=== PATIENT | female | born 1980 | race Hispanic/Latino ===

== ENCOUNTER 2016-11-23 00:07 | Emergency (ER) | payer MEDICAID, OTHER ==
--- NOTE | 2016-11-23 04:35 | Emergency Department Report ---
ED ENT HPI - General Chief complaint: Dental/Oral Stated complaint: FACIAL SWELLING Time Seen by Provider: 11/23/16 04:29 Source: patient Mode of arrival: Ambulatory Limitations: No Limitations - History of Present Illness Initial comments: 36 y/o female complain of toothache x 1 month that has worsen over the last 2 days MD complaint: tooth pain Onset/Timin -: month(s) Severity: moderate Severity scale (0 -10): 7 Quality: aching Consistency: intermittent Improves with: none Worsens with: eating - Related Data Home Medications Medication Instructions Recorded Confirmed Last Taken Perphenazine 8 mg PO HS 09/08/13 07/30/14 05/04/14 21:00 Sertraline [Zoloft] 200 mg PO QDAY 09/08/13 07/30/14 05/04/14 11:00 Previous Rx's Medication Instructions Recorded Last Taken Type Clindamycin [Cleocin] 300 mg PO Q8H #30 cap 07/30/14 Unknown Rx HYDROcodone/APAP 7.5-325 [[place] 1 each PO Q6HR PRN #14 tablet 07/30/14 Unknown Rx 7.5/325 mg] HYDROcodone/APAP 5-325 [[place] 1 each PO Q6HR PRN #10 tablet 11/23/16 Unknown Rx 5/325] Penicillin Vk [Veetids TAB] 250 mg PO QID #28 tablet 11/23/16 Unknown Rx Allergies Allergy/AdvReac Type Severity Reaction Status Date / Time No Known Allergies Allergy Verified 05/05/14 03:51 ED Dental HPI - General Chief complaint: Dental/Oral Stated complaint: FACIAL SWELLING Time Seen by Provider: 11/23/16 04:29 Source: patient Mode of arrival: Ambulatory Limitations: No Limitations - Related Data Home Medications Medication Instructions Recorded Confirmed Last Taken Perphenazine 8 mg PO HS 09/08/13 07/30/14 05/04/14 21:00 Sertraline [Zoloft] 200 mg PO QDAY 09/08/13 07/30/14 05/04/14 11:00 Previous Rx's Medication Instructions Recorded Last Taken Type Clindamycin [Cleocin] 300 mg PO Q8H #30 cap 07/30/14 Unknown Rx HYDROcodone/APAP 7.5-325 [[place] 1 each PO Q6HR PRN #14 tablet 07/30/14 Unknown Rx 7.5/325 mg] HYDROcodone/APAP 5-325 [[place] 1 each PO Q6HR PRN #10 tablet 11/23/16 Unknown Rx 5/325] Penicillin Vk [Veetids TAB] 250 mg PO QID #28 tablet 11/23/16 Unknown Rx Allergies Allergy/AdvReac Type Severity Reaction Status Date / Time No Known Allergies Allergy Verified 05/05/14 03:51 ED Review of Systems ROS: Stated complaint: FACIAL SWELLING Other details as noted in HPI Constitutional: denies: chills, fever Eyes: denies: eye pain, eye discharge, vision change ENT: dental pain. denies: ear pain, throat pain Respiratory: denies: cough, shortness of breath, wheezing Cardiovascular: denies: chest pain, palpitations Endocrine: no symptoms reported Gastrointestinal: denies: abdominal pain, nausea, diarrhea Genitourinary: denies: urgency, dysuria, discharge Musculoskeletal: denies: back pain, joint swelling, arthralgia Skin: denies: rash, lesions Neurological: denies: headache, weakness, paresthesias Psychiatric: denies: anxiety, depression Hematological/Lymphatic: denies: easy bleeding, easy bruising ED Past Medical Hx - Past Medical History Previous Medical History?: Yes Hx Psychiatric Treatment: Yes (depression) Additional medical history: ectopic 2011 sciatica - Surgical History Past Surgical History?: Yes Additional Surgical History: Removed right fallopian tube, tonsils - Social History Smoking Status: Never Smoker Substance Use Type: Alcohol - Medications Home Medications: Home Medications Medication Instructions Recorded Confirmed Last Taken Type Perphenazine 8 mg PO HS 09/08/13 07/30/14 05/04/14 21:00 History Sertraline [Zoloft] 200 mg PO QDAY 09/08/13 07/30/14 05/04/14 11:00 History Clindamycin [Cleocin] 300 mg PO Q8H #30 cap 07/30/14 Unknown Rx HYDROcodone/APAP 7.5-325 [[place] 1 each PO Q6HR PRN #14 tablet 07/30/14 Unknown Rx 7.5/325 mg] HYDROcodone/APAP 5-325 [[place] 1 each PO Q6HR PRN #10 tablet 11/23/16 Unknown Rx 5/325] Penicillin Vk [Veetids TAB] 250 mg PO QID #28 tablet 11/23/16 Unknown Rx ED Physical Exam - General Limitations: No Limitations General appearance: alert, in no apparent distress - Head Head exam: Present: atraumatic, normocephalic - Eye Eye exam: Present: normal appearance - ENT ENT exam: Present: mucous membranes moist - Expanded ENT Exam Expanded Teeth exam: Present: fractured tooth #, dental tenderness # (tooth #17 ) - Neck Neck exam: Present: normal inspection - Respiratory Respiratory exam: Present: normal lung sounds bilaterally. Absent: respiratory distress - Cardiovascular Cardiovascular Exam: Present: regular rate, normal rhythm. Absent: systolic murmur, diastolic murmur, rubs, gallop - GI/Abdominal GI/Abdominal exam: Present: soft, normal bowel sounds - Extremities Exam Extremities exam: Present: normal inspection - Back Exam Back exam: Present: normal inspection - Neurological Exam Neurological exam: Present: alert, oriented X3 - Psychiatric Psychiatric exam: Present: normal affect, normal mood - Skin Skin exam: Present: warm, dry, intact, normal color. Absent: rash ED Course Vital Signs 11/23/16 01:41 Temperature 97.8 F Pulse Rate 96 H Respiratory 18 Rate Blood Pressure 128/77 O2 Sat by Pulse 99 Oximetry ED Medical Decision Making - Medical Decision Making tooth abscess #17-tooth pt state she can not afford dental extraction at present Critical care attestation.: If time is entered above; I have spent that time in minutes in the direct care of this critically ill patient, excluding procedure time. ED Disposition Clinical Impression: Tooth abscess Disposition: DISCHARGED TO HOME OR SELFCARE Is pt being admited?: No Does the pt Need Aspirin: No Condition: Stable Instructions: Dental Abscess (ED) Prescriptions: HYDROcodone/APAP 5-325 [[place] 5/325] 1 each PO Q6HR PRN #10 tablet PRN Reason: Pain Penicillin Vk [Veetids TAB] 250 mg PO QID #28 tablet Referrals: PRIMARY CARE, [Primary Care Provider] - 3-5 Days [facility] [Outside] - 3-5 Days Forms: Work/School Release Form(ED) Time of Disposition: 04:39
[2016-11-23] MEDS ORDERED: NORCO 10/325 PO ONE (05:14)
[2016-11-23 06:05] VITALS: BP 122/79
== END 2016-11-23 06:03 | disposition home or self-care (01) ==
LOC: ED 00:07
DX: K04.7 Periapical abscess without sinus (principal)
CPT/HCPCS: 99282

== ENCOUNTER 2017-09-21 12:25 | Emergency (ER) | payer SELFPAY ==
[2017-09-21 12:47] VITALS: BP 139/79
--- NOTE | 2017-09-21 14:19 | Emergency Department Report ---
ED General Adult HPI - General Chief complaint: Psych Stated complaint: NAUSEA Time Seen by Provider: 09/21/17 13:33 Source: EMS Mode of arrival: Stretcher Limitations: No Limitations - History of Present Illness Initial comments: Patient is a 37-year-old female past medical history of irritable bowel syndrome who presents with allegedly altered mental status. Patient was stating that she was nauseous and having abdominal pain. She states because that she was told that she was confused by EMS. Patient is currently alert and oriented and patient has no suicidal or homicidal ideation. She states that she smoked some weed earlier and she was confused and sit up all was the president counseled that EMS told her she hadto go to the emergency department. She is refusing blood work and diagnostic tests as she states that she doesn' t want to go forearm. Patient states that she is not confused now and that she would like to leave. Patient is alert and oriented 4 and engages and clear cold directed behavior will try to talk to patient's to confirm story Severity scale (0 -10): 0 - Related Data Home Medications Medication Instructions Recorded Confirmed Last Taken Perphenazine 8 mg PO HS 09/08/13 07/30/14 05/04/14 21:00 Sertraline [Zoloft] 200 mg PO QDAY 09/08/13 07/30/14 05/04/14 11:00 Previous Rx's Medication Instructions Recorded Last Taken Type Clindamycin [Cleocin] 300 mg PO Q8H #30 cap 07/30/14 Unknown Rx HYDROcodone/APAP 7.5-325 [[place] 1 each PO Q6HR PRN #14 tablet 07/30/14 Unknown Rx 7.5/325 mg] HYDROcodone/APAP 5-325 [[place] 1 each PO Q6HR PRN #10 tablet 11/23/16 Unknown Rx 5/325] Penicillin Vk [Veetids TAB] 250 mg PO QID #28 tablet 11/23/16 Unknown Rx Allergies Allergy/AdvReac Type Severity Reaction Status Date / Time No Known Allergies Allergy Verified 05/05/14 03:51 ED Review of Systems ROS: Stated complaint: NAUSEA Other details as noted in HPI Constitutional: denies: chills, fever Eyes: denies: eye pain, eye discharge, vision change ENT: denies: ear pain, throat pain Respiratory: denies: cough, shortness of breath, wheezing Cardiovascular: denies: chest pain, palpitations Endocrine: no symptoms reported Gastrointestinal: nausea, vomiting. denies: abdominal pain, diarrhea Genitourinary: denies: urgency, dysuria, discharge Musculoskeletal: denies: back pain, joint swelling, arthralgia Skin: other (knee abrasion). denies: rash, lesions Neurological: denies: headache, weakness, paresthesias Psychiatric: denies: anxiety, depression Hematological/Lymphatic: denies: easy bleeding, easy bruising ED Past Medical Hx - Past Medical History Hx Psychiatric Treatment: Yes (depression) Additional medical history: ectopic 2010 sciatica - Surgical History Additional Surgical History: Removed right fallopian tube, tonsils - Social History Smoking Status: Unknown if ever smoked - Medications Home Medications: Home Medications Medication Instructions Recorded Confirmed Last Taken Type Perphenazine 8 mg PO HS 09/08/13 07/30/14 05/04/14 21:00 History Sertraline [Zoloft] 200 mg PO QDAY 09/08/13 07/30/14 05/04/14 11:00 History Clindamycin [Cleocin] 300 mg PO Q8H #30 cap 07/30/14 Unknown Rx HYDROcodone/APAP 7.5-325 [[place] 1 each PO Q6HR PRN #14 tablet 07/30/14 Unknown Rx 7.5/325 mg] HYDROcodone/APAP 5-325 [[place] 1 each PO Q6HR PRN #10 tablet 11/23/16 Unknown Rx 5/325] Penicillin Vk [Veetids TAB] 250 mg PO QID #28 tablet 11/23/16 Unknown Rx ED Physical Exam - General Limitations: No Limitations General appearance: alert, in no apparent distress - Head Head exam: Present: atraumatic, normocephalic - Eye Eye exam: Present: normal appearance - ENT ENT exam: Present: mucous membranes moist - Neck Neck exam: Present: normal inspection - Respiratory Respiratory exam: Present: normal lung sounds bilaterally. Absent: respiratory distress - Cardiovascular Cardiovascular Exam: Present: regular rate, normal rhythm. Absent: systolic murmur, diastolic murmur, rubs, gallop - GI/Abdominal GI/Abdominal exam: Present: soft, normal bowel sounds - Extremities Exam Extremities exam: Present: other (bilateral knee abrasion) - Back Exam Back exam: Present: normal inspection - Neurological Exam Neurological exam: Present: alert, oriented X3 - Psychiatric Psychiatric exam: Present: normal affect, normal mood - Skin Skin exam: Present: warm, dry, intact, normal color. Absent: rash ED Course Vital Signs 09/21/17 09/21/17 12:45 12:48 Temperature 97.7 F Pulse Rate 58 L Respiratory 12 12 Rate Blood Pressure 139/79 [Left] O2 Sat by Pulse 99 99 Oximetry ED Medical Decision Making - Medical Decision Making Chief medical diagnosis: Confusion secondary to drug effect Differential multiple diagnosis: Hypoglycemia, electrolyte abnormality CBC, CMP, urinalysis, urine drug screen Patient is refusing blood work and blood tests patient is oriented and alert 3 patient has clear goal-directed behavior and has no suicidal or homicidal ideation. Discussed with patient's patient does not have a history of suicidal ideation and she says she was confused due to drugs. Given that patient has a clear history I will send patient home and patient does not need to be evaluated by mental health worker as patient has no reason to be admitted to psychiatry facility. Discussed outpatient patient agrees with plan engaged and shared decision making. Critical care attestation.: If time is entered above; I have spent that time in minutes in the direct care of this critically ill patient, excluding procedure time. ED Disposition Clinical Impression: Confusion Knee abrasion Qualifiers: Encounter type: initial encounter Laterality: unspecified laterality Qualified Code(s): S80.219A - Abrasion, unspecified knee, initial encounter Disposition: DC-01 TO HOME OR SELFCARE Is pt being admited?: No Does the pt Need Aspirin: No Condition: Stable Instructions: Altered Mental Status (ED) Referrals: TUNG YOST MD [Staff Physician] - 3-5 Days
== END 2017-09-21 16:32 | disposition home or self-care (01) ==
LOC: ED 12:25
DX: S80.212A Abrasion, left knee, initial encounter (principal); S80.211A Abrasion, right knee, initial encounter; F32.9 Major depressive disorder, single episode, unspecified; X58.XXXA Exposure to other specified factors, initial encounter; Y93.89 Activity, other specified; Y92.89 Other specified places as the place of occurrence of the external cause; Y99.8 Other external cause status
CPT/HCPCS: 99283

== ENCOUNTER 2018-12-02 22:41 | Emergency (ER) | payer SELFPAY ==
[2018-12-02] MEDS ORDERED: TYLENOL ONE (23:01)
[2018-12-02 23:08] VITALS: BP 133/85
[2018-12-02] MEDS ORDERED: TYLENOL PO ONE (23:08)
[2018-12-03] MEDS ORDERED: TRIPLE ANTIBIOTIC TP STA (00:20)
--- NOTE | 2018-12-03 01:02 | XRay Report ---
FINAL REPORT PROCEDURE: XR HAND 3+V LT TECHNIQUE: LEFT hand radiographs, AP, lateral, and oblique views. CPT 81947-TI HISTORY: injury during arrest COMPARISON: No prior studies are available for comparison. FINDINGS: Fracture (s) and/or Dislocation(s): There is a comminuted fracture of the 2nd metacarpal bone.. Alignment: Normal . Joint space(s): Normal . Soft tissues: There is generalized soft tissue swelling.. Bone mineralization: Normal . Foreign bodies: None . IMPRESSION: Fracture of the distal 2nd metacarpal bone..
--- NOTE | 2018-12-03 01:14 | Emergency Department Report ---
ED General Adult HPI - General Chief complaint: Extremity Injury, Upper Stated complaint: BUMP ON HEAD, INJURY TO FINGER Time Seen by Provider: 12/03/18 00:18 Source: patient Mode of arrival: Ambulatory Limitations: No Limitations - History of Present Illness Initial comments: 38-year-old female resents emergency department with police in custody complaining of pain to her left hand and right shoulder region. States that she was also his hip. There are some portion of the wrist, but denies any loss of consciousness, presyncope, nausea, vomiting, visual disturbances or neck pain. She reports tingling to her hands and the left has pain with range of motion. Her right hand. States she feels some pins and needles to the hand as pain a ppears to be radiating from her shoulder. No abdominal pain or chest pain. She is ambulatory without limitations despite abrasions to her knees bilaterally. The pre-existing injury to her right shoulder that was sustained at 2013 and has a lot of complaints regarding being handcuffed behind her back. Location: head, left, right, upper extremity, lower extremity Radiation: non-radiation Severity scale (0 -10): 0 Quality: dull Consistency: constant Improves with: none Worsens with: none Associated Symptoms: denies: confusion, chest pain, cough, diaphoresis, loss of appetite, malaise, nausea/vomiting, shortness of breath, syncope, weakness Treatments Prior to Arrival: none - Related Data Home Medications Medication Instructions Recorded Confirmed Last Taken Perphenazine 8 mg PO HS 09/08/13 07/30/14 05/04/14 21:00 Sertraline [Zoloft] 200 mg PO QDAY 09/08/13 07/30/14 05/04/14 11:00 Previous Rx's Medication Instructions Recorded Last Taken Type Clindamycin [Cleocin] 300 mg PO Q8H #30 cap 07/30/14 Unknown Rx HYDROcodone/APAP 7.5-325 [[place] 1 each PO Q6HR PRN #14 tablet 07/30/14 Unknown Rx 7.5/325 mg] HYDROcodone/APAP 5-325 [[place] 1 each PO Q6HR PRN #10 tablet 11/23/16 Unknown Rx 5/325] Penicillin Vk [Veetids TAB] 250 mg PO QID #28 tablet 11/23/16 Unknown Rx Ketorolac [Toradol] 10 mg PO Q6H PRN #20 tablet 12/03/18 Unknown Rx Allergies Allergy/AdvReac Type Severity Reaction Status Date / Time No Known Allergies Allergy Verified 05/05/14 03:51 ED Review of Systems ROS: Stated complaint: BUMP ON HEAD, INJURY TO FINGER Other details as noted in HPI Constitutional: denies: chills, fever Eyes: denies: eye pain, eye discharge, vision change ENT: denies: ear pain, throat pain Respiratory: denies: cough, shortness of breath, wheezing Cardiovascular: denies: chest pain, palpitations Endocrine: no symptoms reported Gastrointestinal: denies: abdominal pain, nausea, diarrhea Genitourinary: denies: urgency, dysuria, discharge Musculoskeletal: joint swelling. denies: back pain, arthralgia Skin: denies: rash, lesions Neurological: denies: headache, weakness, paresthesias Psychiatric: denies: anxiety, depression Hematological/Lymphatic: denies: easy bleeding, easy bruising ED Past Medical Hx - Past Medical History Previous Medical History?: Yes Hx Psychiatric Treatment: Yes (depression) Additional medical history: ectopic 2010 sciatica - Surgical History Past Surgical History?: Yes Additional Surgical History: Removed right fallopian tube, tonsils. R wrist fx. hardware in R shoulder, ?2013/2014 - Social History Smoking Status: Current Every Day Smoker Substance Use Type: Alcohol - Medications Home Medications: Home Medications Medication Instructions Recorded Confirmed Last Taken Type Perphenazine 8 mg PO HS 09/08/13 07/30/14 05/04/14 21:00 History Sertraline [Zoloft] 200 mg PO QDAY 09/08/13 07/30/14 05/04/14 11:00 History Clindamycin [Cleocin] 300 mg PO Q8H #30 cap 07/30/14 Unknown Rx HYDROcodone/APAP 7.5-325 [[place] 1 each PO Q6HR PRN #14 tablet 07/30/14 Unknown Rx 7.5/325 mg] HYDROcodone/APAP 5-325 [[place] 1 each PO Q6HR PRN #10 tablet 11/23/16 Unknown Rx 5/325] Penicillin Vk [Veetids TAB] 250 mg PO QID #28 tablet 11/23/16 Unknown Rx Ketorolac [Toradol] 10 mg PO Q6H PRN #20 tablet 12/03/18 Unknown Rx ED Physical Exam - General Limitations: No Limitations General appearance: alert, in no apparent distress - Head Head exam: Present: atraumatic, normocephalic, other (abrasion to the left frontal region with a small hematoma) - Eye Eye exam: Present: normal appearance, PERRL, EOMI. Absent: scleral icterus, conjunctival injection, periorbital swelling, periorbital tenderness Pupils: Present: normal accommodation - ENT ENT exam: Present: normal exam, normal orophraynx, mucous membranes moist. Absent: TM's normal bilaterally - Neck Neck exam: Present: normal inspection, full ROM. Absent: tenderness, meningismus, lymphadenopathy - Respiratory Respiratory exam: Present: normal lung sounds bilaterally, chest wall tenderness. Absent: respiratory distress, wheezes, rales, rhonchi, accessory muscle use, decreased breath sounds - Cardiovascular Cardiovascular Exam: Present: regular rate, normal rhythm. Absent: bradycardia, tachycardia, irregular rhythm, systolic murmur, diastolic murmur, rubs, gallop - GI/Abdominal GI/Abdominal exam: Present: soft, normal bowel sounds. Absent: tenderness, gua rding, hypoactive bowel sounds, organomegaly, mass, bruit, pulsatile mass - Extremities Exam Extremities exam: Present: normal inspection, full ROM, tenderness, normal capillary refill, other (right shoulder is negative sulcus sign. There is no pain with Ramesh test. There is some discomfort with palpation of the lower aspect of the deltoid. There is no swelling or bruising. Full range of motion is is is appreciated. No axillary tenderness.). Absent: pedal edema, joint swelling - Expanded Upper Extremity Exam Left Shoulder Exam: Present: normal inspection Upper Arm exam: Present: normal inspection Hand Wrist exam: Present: tenderness, swelling (at the level of the second and third metacarpal region. Snuff box tenderness is appreciated as well. Pulses are 2+. Capillary refills are brisk. Overlock Waistline Joiner strength is 2/5) - Back Exam Back exam: Present: normal inspection, full ROM - Neurological Exam Neurological exam: Present: alert, oriented X3, CN II-XII intact, normal gait - Psychiatric Psychiatric exam: Present: normal affect, normal mood, depressed - Skin Skin exam: Present: warm, dry, normal color, abrasion (fingers bilaterally. Frontal region of the head), ecchymosis, other. Absent: intact, rash ED Course Vital Signs 12/02/18 12/02/18 23:03 23:09 Temperature 98 F Pulse Rate 91 H Respiratory 14 18 Rate Blood Pressure 133/85 O2 Sat by Pulse 100 Oximetry - Procedure Description Procedures done: Left hand Was placed in a volar splint, OCL. Neurovascularly intact. No complications Critical care attestation.: If time is entered above; I have spent that time in minutes in the direct care of this critically ill patient, excluding procedure time. ED Disposition Clinical Impression: Metacarpal bone fracture Disposition: DC-01 TO HOME OR SELFCARE Is pt being admited?: No Does the pt Need Aspirin: No Condition: Stable Instructions: Hand Fracture (ED) Prescriptions: Ketorolac [Toradol] 10 mg PO Q6H PRN #20 tablet PRN Reason: Pain Referrals: PRIMARY CARE, [Primary Care Provider] - 3-5 Days JAMES MOISE MD [Staff Physician] - 3-5 Days
[2018-12-03] MEDS ORDERED: IBUPROFEN PO ONE ×2 (01:27→01:28)
[2018-12-03] MEDS ORDERED: NORCO 5/325 ONE (01:28)
[2018-12-03] MEDS ORDERED: NORCO 5/325 PO ONE (01:28)
== END 2018-12-03 02:00 | disposition home or self-care (01) ==
LOC: ED 22:41
DX: S62.391A Other fracture of second metacarpal bone, left hand, initial encounter for closed fracture (principal); F32.9 Major depressive disorder, single episode, unspecified; F17.200 Nicotine dependence, unspecified, uncomplicated; X58.XXXA Exposure to other specified factors, initial encounter; Y93.89 Activity, other specified; Y92.89 Other specified places as the place of occurrence of the external cause; Y99.8 Other external cause status
CPT/HCPCS: A6250

== ENCOUNTER 2022-01-12 00:49 | Emergency (ER) | payer MEDICAID ==
[2022-01-12] MEDS ORDERED: SODIUM CHLORIDE 0.9% 1000 ML 1,000 ML IV ONE (01:19)
[2022-01-12] MEDS ORDERED: NALOXONE 2 MG/2 ML INJ IV ONE (01:20)
[2022-01-12] MEDS ORDERED: NALOXONE 2 MG/2 ML INJ ONE (01:20)
[2022-01-12 01:49] LABS: Basophils # (Auto) 0.1 K/mm3 (0.0-0.1); Basophils % (Auto) 0.7 % (0.0-1.8); Eosinophils # (Auto) 0.1 K/mm3 (0.0-0.4); Eosinophils % (Auto) 1.4 % (0.0-4.3); Hematocrit 43.5 % (30.3-42.9); Hemoglobin 14.1 gm/dl (10.1-14.3); Lymphocytes # (Auto) 2.7 K/mm3 (1.2-5.4); Lymphocytes % (Auto) 32.4 % (13.4-35.0); Mean Corpuscular HGB Conc 32 % (30-34); Mean Corpuscular Volume 91 fl (79-97); Monocytes # (Auto) 0.3 K/mm3 (0.0-0.8); Monocytes % (Auto) 3.5 % (0.0-7.3); Platelet Count 269 K/mm3 (140-440); Red Blood Count 4.76 M/mm3 (3.65-5.03); Red Cell Distribution Width 13.4 % (13.2-15.2)
--- NOTE | 2022-01-12 03:10 | XRay Report ---
CHEST 1 VIEW 01/12/2022 1:22 AM INDICATION / CLINICAL INFORMATION: Medical Clearance Psych. COMPARISON: None available. FINDINGS: SUPPORT DEVICES: None. HEART / MEDIASTINUM: No significant abnormality. LUNGS / PLEURA: No significant pulmonary or pleural abnormality. No pneumothorax. ADDITIONAL FINDINGS: No significant additional findings. IMPRESSION: No significant abnormality. Signer Name: Junior Mcnair MD Signed: 01/12/2022 3:06 AM Workstation Name: [id number]
[2022-01-12 03:13] LABS: Alanine Aminotransferase 12 units/L (7-56); Albumin 4.1 g/dL (3.9-5); Blood Urea Nitrogen 11 mg/dL (7-17); Calcium 9.1 mg/dL (8.4-10.2); Hemolysis Index 6
[2022-01-12 03:17] LABS: BUN/Creatinine Ratio 16
--- NOTE | 2022-01-12 04:34 | Cat Scan Report ---
CT facial bones wo con INDICATION: injury. TECHNIQUE: All CT scans at this location are performed using the following dose modulation technique: Automated exposure control. CONTRAST: None. COMPARISON: None available. FINDINGS: Soft tissue swelling is noted centrally at the frontal region. No bony injury or sinus air-fluid level. A small mucous retention cyst is seen at the inferior aspect of the left maxillary sinus. No suspicious soft tissue abnormality. IMPRESSION: 1. No bony injury. 2. Soft tissue swelling frontal region centrally. Signer Name: Junior Mcnair MD Signed: 01/12/2022 4:30 AM Workstation Name: [id number]
[2022-01-12 04:37] LABS: Benzodiazepines Screen,Urine Negative; Cocaine Screen,Urine Negative; Methadone Screen,Urine Negative; Opiate Screen,Urine Negative
--- NOTE | 2022-01-12 04:40 | Cat Scan Report ---
CT head without contrast INDICATION : Medical Clearance Psych. Headache. TECHNIQUE: Axial imaging performed from the skull apex through the skull base without the use of con trast. All CT scans at this location are performed using CT dose reduction for ALARA by means of aut omated exposure control. COMPARISON: None FINDINGS: Parenchyma: No mass, stroke or hemorrhage. Ventricles: Ventricles are normal in size and appear symmetric. Soft tissues: Soft tissue hematoma frontal region centrally. Bones: No acute osseous abnormality. Sinuses: Sinuses and mastoid air cells are clear. IMPRESSION: 1. No intracranial injury. 2. Soft tissue hematoma frontal region centrally. Signer Name: Junior Mcnair MD Signed: 01/12/2022 4:36 AM Workstation Name: [id number]
[2022-01-12 04:51] LABS: Bacteria,Urine 1+ /HPF (Negative); Bilirubin,Urine NEG (Negative); Blood,Urine SM (Negative); Color,Urine Yellow (Yellow); Mucus,Urine FEW /HPF; Protein,Urine <15 mg/dL mg/dL (Negative)
[2022-01-12 04:59] LABS: Amphetamine Screen,Urine PRESUMPTIVE POSITIVE; Cannabinoid Screen,Urine PRESUMPTIVE POSITIVE
--- NOTE | 2022-01-12 05:39 | Emergency Department Report ---
History of Present Illness - General Chief Complaint: Overdose Stated Complaint: AMS Time Seen by Provider: 01/12/22 01:19 Source: EMS Mode of arrival: Stretcher Limitations: Altered Mental Status - History of Present Illness Initial Comments: Pt came in via EMS due to a pt hitting her head on the counter at a quick trip on [employer]. Pt recieved 2mg of narcan in route per EMS. -: Gradual, days(s) Intent: unwilling to say Context: Accidental Overdose: wanted to get high Treatments Prior to Arrival: none - Related Data Home Medications Medication Instructions Recorded Confirmed Last Taken Perphenazine 8 mg PO HS 09/08/13 07/30/14 05/04/14 21:00 Sertraline [Zoloft] 200 mg PO QDAY 09/08/13 07/30/14 05/04/14 11:00 Previous Rx's Medication Instructions Recorded Last Taken Type Clindamycin [Cleocin] 300 mg PO Q8H #30 cap 07/30/14 Unknown Rx HYDROcodone/APAP 7.5-325 [[place] 1 each PO Q6HR PRN #14 tablet 07/30/14 Unknown Rx 7.5/325 mg] HYDROcodone/APAP 5-325 [[place] 1 each PO Q6HR PRN #10 tablet 11/23/16 Unknown Rx 5/325] Penicillin Vk [Veetids TAB] 250 mg PO QID #28 tablet 11/23/16 Unknown Rx Ketorolac [Toradol] 10 mg PO Q6H PRN #20 tablet 12/03/18 Unknown Rx Allergies Allergy/AdvReac Type Severity Reaction Status Date / Time No Known Allergies Allergy Verified 05/05/14 03:51 ED Review of Systems ROS: Stated complaint: AMS Other details as noted in HPI Constitutional: denies: chills, fever Eyes: denies: eye pain, eye discharge, vision change ENT: denies: ear pain, throat pain Respiratory: denies: cough, shortness of breath, wheezing Cardiovascular: denies: chest pain, palpitations Endocrine: no symptoms reported Gastrointestinal: denies: abdominal pain, nausea, diarrhea Genitourinary: denies: urgency, dysuria, discharge Musculoskeletal: denies: back pain, joint swelling, arthralgia Skin: denies: rash, lesions Neurological: denies: headache, weakness, paresthesias Psychiatric: denies: anxiety, depression Hematological/Lymphatic: denies: easy bleeding, easy bruising ED Past Medical Hx - Past Medical History Previous Medical History?: No Hx Hypertension: No Hx Psychiatric Treatment: Yes (depression) Additional medical history: ectopic 2010 sciatica - Surgical History Additional Surgical History: Removed right fallopian tube, tonsils. R wrist fx. hardware in R shoulder, ?2013/2014 - Social History Smoking Status: Current Every Day Smoker Substance Use Type: Alcohol - Medications Home Medications: Home Medications Medication Instructions Recorded Confirmed Last Taken Type Perphenazine 8 mg PO HS 09/08/13 07/30/14 05/04/14 21:00 History Sertraline [Zoloft] 200 mg PO QDAY 09/08/13 07/30/14 05/04/14 11:00 History Clindamycin [Cleocin] 300 mg PO Q8H #30 cap 07/30/14 Unknown Rx HYDROcodone/APAP 7.5-325 [[place] 1 each PO Q6HR PRN #14 tablet 07/30/14 Unknown Rx 7.5/325 mg] HYDROcodone/APAP 5-325 [[place] 1 each PO Q6HR PRN #10 tablet 11/23/16 Unknown Rx 5/325] Penicillin Vk [Veetids TAB] 250 mg PO QID #28 tablet 11/23/16 Unknown Rx Ketorolac [Toradol] 10 mg PO Q6H PRN #20 tablet 12/03/18 Unknown Rx ED Physical Exam - General Limitations: Altered Mental Status General appearance: appears intoxicated, obese - Expanded Head Exam Expanded Head exam: Present: contusion - Eye Eye exam: Present: normal appearance - ENT ENT exam: Present: mucous membranes moist - Neck Neck exam: Present: normal inspection - Respiratory Respiratory exam: Present: normal lung sounds bilaterally. Absent: respiratory distress - Cardiovascular Cardiovascular Exam: Present: regular rate, normal rhythm. Absent: systolic murmur, diastolic murmur, rubs, gallop - GI/Abdominal GI/Abdominal exam: Present: soft, normal bowel sounds - Extremities Exam Extremities exam: Present: normal inspection - Back Exam Back exam: Present: normal inspection - Neurological Exam Neurological exam: Present: alert, oriented X3 - Psychiatric Psychiatric exam: Present: normal affect, normal mood - Skin Skin exam: Present: warm, dry, intact, normal color. Absent: rash ED Course Vital Signs 01/12/22 01:31 Pulse Rate 53 L Respiratory 16 Rate Blood Pressure 123/71 [Right] O2 Sat by Pulse 98 Oximetry ED Medical Decision Making - Lab Data Result diagrams: 01/12/22 01:28 01/12/22 01:28 - Radiology Data Radiology results: image reviewed - Medical Decision Making head ct negative , work up negative drug abuse noted , will dishcarge home aake and alert and back to banner Critical care attestation.: If time is entered above; I have spent that time in minutes in the direct care of this critically ill patient, excluding procedure time. ED Disposition Clinical Impression: Facial contusion, Substance abuse, Nasal contusion, Altered mental status Disposition: 01 HOME / SELF CARE / HOMELESS Is pt being admited?: No Does the pt Need Aspirin: No Condition: Stable Instructions: Substance Use Disorder and Mental Illness, How to Use Cold Therapy, Substance Use Disorder
[2022-01-12 06:03] VITALS: BP 138/56
== END 2022-01-12 05:58 | disposition home or self-care (01) ==
LOC: ED 00:49
DX: S00.83XA Contusion of other part of head, initial encounter (principal); S00.33XA Contusion of nose, initial encounter; R41.82 Altered mental status, unspecified; F17.200 Nicotine dependence, unspecified, uncomplicated; F10.20 Alcohol dependence, uncomplicated; X58.XXXA Exposure to other specified factors, initial encounter; Y93.89 Activity, other specified; Y92.89 Other specified places as the place of occurrence of the external cause; Y99.8 Other external cause status; F19.10 Other psychoactive substance abuse, uncomplicated
CPT/HCPCS: 36415; 70450; 70486; 71045; 80053; 80307; 81001; 84703; 85025; 96361; 96374; 99285; J2310; J7030; 80320; Q0162; G0480

== ENCOUNTER 2022-03-24 04:51 | Inpatient (IN) | payer MEDICAID ==
[2022-03-24] MEDS ORDERED: SODIUM CHLORIDE 0.9% 1000 ML 1,000 ML ONE (05:08)
[2022-03-24] MEDS ORDERED: MINERAL OIL/PETROLATUM, WHITE OPHTH OINT 3.5 GM OU PRN (05:08)
[2022-03-24] MEDS ORDERED: LIP THERAPY VASELINE TP PRN (05:08)
[2022-03-24] MEDS ORDERED: SODIUM CHLORIDE 0.9% 1000 ML 1,000 ML IV ONE (05:11)
--- NOTE | 2022-03-24 05:12 | Emergency Department Report ---
<SOPHY BOND K - Last Filed: 03/24/22 07:16> ED Altered Mental Status HPI - General Stated Complaint: DRUG OVERDOSE Time Seen by Provider: 03/24/22 05:08 - Related Data Home Medications Medication Instructions Recorded Confirmed Last Taken Perphenazine 8 mg PO HS 09/08/13 07/30/14 05/04/14 21:00 Sertraline [Zoloft] 200 mg PO QDAY 09/08/13 07/30/14 05/04/14 11:00 Previous Rx's Medication Instructions Recorded Last Taken Type Clindamycin [Cleocin] 300 mg PO Q8H #30 cap 07/30/14 Unknown Rx HYDROcodone/APAP 7.5-325 [[place] 1 each PO Q6HR PRN #14 tablet 07/30/14 Unknown Rx 7.5/325 mg] HYDROcodone/APAP 5-325 [[place] 1 each PO Q6HR PRN #10 tablet 11/23/16 Unknown Rx 5/325] Penicillin Vk [Veetids TAB] 250 mg PO QID #28 tablet 11/23/16 Unknown Rx Ketorolac [Toradol] 10 mg PO Q6H PRN #20 tablet 12/03/18 Unknown Rx Allergies Allergy/AdvReac Type Severity Reaction Status Date / Time No Known Allergies Allergy Verified 05/05/14 03:51 ED Past Medical Hx - Medications Home Medications: Home Medications Medication Instructions Recorded Confirmed Last Taken Type Perphenazine 8 mg PO HS 09/08/13 07/30/14 05/04/14 21:00 History Sertraline [Zoloft] 200 mg PO QDAY 09/08/13 07/30/14 05/04/14 11:00 History Clindamycin [Cleocin] 300 mg PO Q8H #30 cap 07/30/14 Unknown Rx HYDROcodone/APAP 7.5-325 [[place] 1 each PO Q6HR PRN #14 tablet 07/30/14 Unknown Rx 7.5/325 mg] HYDROcodone/APAP 5-325 [[place] 1 each PO Q6HR PRN #10 tablet 11/23/16 Unknown Rx 5/325] Penicillin Vk [Veetids TAB] 250 mg PO QID #28 tablet 11/23/16 Unknown Rx Ketorolac [Toradol] 10 mg PO Q6H PRN #20 tablet 12/03/18 Unknown Rx - Lab Data Result diagrams: 03/24/22 05:35 03/24/22 05:35 ED Disposition Clinical Impression: Obtundation, Drug overdose, Endotracheally intubated Disposition: ADMITTED INPATIENT Is pt being admited?: Yes Does the pt Need Aspirin: No Condition: Fair Time of Disposition: 07:17 (Care transferred over to hospitalist Dr. Rowan (discussed with Dr. Pappas)) <POLAHALEYAMANDA C - Last Filed: 03/26/22 14:02> ED Altered Mental Status HPI - General Source: patient, EMS, old records reviewed Mode of arrival: Stretcher Limitations: Altered Mental Status, Physical Limitation - History of Present Illness Initial Comments: 41-year-old female with a past medical history of substance abuse with drug overdose presents to the hospital with suspected drug overdose and altered mental status. Patient was picked up by EMS at a male friend's house. He reports that she drank a substance and then passed out and became unresponsive. Patient was reported breathing at a rate of 4 with decreased responsiveness. She received 2 g of Narcan without response with an Accu-Chek of 110. Upon arrival she is satting 99% on room air, with pinpoint pupils, unresponsive to sternal rub, and bradycardia. Decision made to intubate for airway protection due to decreased responsiveness. Patient arrived without IV access. as per medical record review patient was here in December for drug overdose responsive to Narcan and evaluated for face and head injury. ED Review of Systems ROS: Stated complaint: DRUG OVERDOSE Other details as noted in HPI Comment: Unobtainable due to pts medical conditions ED Past Medical Hx - Past Medical History Hx Hypertension: No Hx Psychiatric Treatment: Yes (depression) Additional medical history: ectopic 2010 sciatica - Surgical History Additional Surgical History: Removed right fallopian tube, tonsils. R wrist fx. hardware in R shoulder, ?2013/2014 - Social History Smoking Status: Current Every Day Smoker Substance Use Type: Alcohol ED Physical Exam - Other Other exam information: General: Unresponsive Head: Atraumatic Eyes: Pinpoint pupils ENT: Moist mucous membranes Neck: Normal appearance, no midline tenderness Chest: Clear to auscultation bilaterally CV: Bradycardic regular rhythm Abdomen: Soft, normal bowel sounds, nontender, nondistended, no rebound or guarding Back: Normal inspection Extremity: Normal inspection, full range of motion Neuro: gcs E1,V1,M4=6. Patient had minimal movement of her left foot with sternal rub but otherwise did not respond to pain. Psych: Appropriate behavior Skin: No rash ED Course Vital Signs 03/24/22 03/24/22 03/24/22 05:12 05:15 05:29 Temperature 97.8 F Pulse Rate 44 L 50 L 50 L Respiratory 18 16 Rate Blood Pressure 101/68 116/80 O2 Sat by Pulse 100 100 100 Oximetry 03/24/22 03/24/22 03/24/22 05:30 05:40 06:00 Temperature Pulse Rate 38 L 48 L Respiratory 16 16 Rate Blood Pressure 100/67 117/58 O2 Sat by Pulse 100 100 100 Oximetry 03/24/22 03/24/22 03/24/22 06:16 06:30 06:46 Temperature Pulse Rate 47 L 50 L 83 Respiratory 16 16 15 Rate Blood Pressure 123/75 130/78 130/78 O2 Sat by Pulse 100 100 100 Oximetry 03/24/22 03/24/22 03/24/22 07:00 07:13 07:15 Temperature Pulse Rate 85 57 L 71 Respiratory 17 16 Rate Blood Pressure 129/83 125/75 125/75 O2 Sat by Pulse 100 100 100 Oximetry 03/24/22 03/24/22 03/24/22 07:30 07:45 08:00 Temperature Pulse Rate 58 L 75 84 Respiratory 16 15 15 Rate Blood Pressure 127/74 122/82 111/83 O2 Sat by Pulse 100 100 100 Oximetry 03/24/22 03/24/22 03/24/22 08:15 08:30 08:45 Temperature Pulse Rate 78 84 Respiratory 29 H 21 Rate Blood Pressure 116/61 124/65 119/59 O2 Sat by Pulse 100 100 100 Oximetry - Reevaluation(s) Reevaluation #1: 03/24/22 05:21 Heart rate sinus bradycardia rate 39 on EKG with a pressure of 107/69 03/24/22 05:47 I was informed that the patient was actively moving all over the table for CAT scan. IV ketamine ordered in order to obtain imaging study - Intubation Time Out Performed: Yes Sedative: Etomidate Mg Given: 20 Paralytic: Succinylcholine Mg Given: 10 Laryngoscope: Britney Size: 4 ET Tube Size: 7.5 Tube Secured Depth (cm): 22 Tube Secured Location: lips Tube Placement Confirmation: visualized tube passing t, equal breath sounds bilat, no breath sounds over epi, confirmation by capnometr Patient Tolerated Procedure: well, no complications Intubation Complications: none Additional Comments: Swelling to the arytenoid cartilage noticed during intubation - Lab Data Result diagrams: 03/25/22 10:01 03/25/22 10:01 Lab Results 03/24/22 03/24/22 03/24/22 Range/Units 05:22 05:35 05:35 WBC 11.2 H (4.5-11.0) K/mm3 RBC 4.72 (3.65-5.03) M/mm3 Hgb 14.0 (10.1-14.3) gm/dl Hct 43.7 H (30.3-42.9) % MCV 93 (79-97) fl MCH 30 (28-32) pg MCHC 32 (30-34) % RDW 15.2 (13.2-15.2) % Plt Count 266 (140-440) K/mm3 Lymph % (Auto) 19.6 (13.4-35.0) % [place] % (Auto) 5.3 (0.0-7.3) % Eos % (Auto) 0.8 (0.0-4.3) % Baso % (Auto) 0.7 (0.0-1.8) % Lymph # (Auto) 2.2 (1.2-5.4) K/mm3 [place] # (Auto) 0.6 (0.0-0.8) K/mm3 Eos # (Auto) 0.1 (0.0-0.4) K/mm3 Baso # (Auto) 0.1 (0.0-0.1) K/mm3 Seg Neutrophils % 73.6 H (40.0-70.0) % Seg Neutrophils # 8.3 H (1.8-7.7) K/mm3 PT 12.7 (12.2-14.9) Sec. INR 0.87 (0.87-1.13) APTT 28.4 (24.2-36.6) Sec. ABG pH (7.350-7.450) pH Units ABG pCO2 mm Hg ABG pO2 (80.0-90.0) mm Hg ABG HCO3 (20.0-26.0) mmol/L ABG O2 Saturation (95.0-99.0) % ABG O2 Content (0.0-44) ABG Base Excess (-2.0-3.0) mmol/L ABG Hemoglobin (12.0-16.0) gm/dl ABG Carboxyhemoglobin (0.0-5.0) % ABG Methemoglobin (0.0-1.5) % Oxyhemoglobin (95.0-99.0) % FiO2 % Sodium (137-145) mmol/L Potassium (3.6-5.0) mmol/L Chloride (98-107) mmol/L Carbon Dioxide (22-30) mmol/L Anion Gap mmol/L BUN (7-17) mg/dL Creatinine (0.6-1.2) mg/dL Estimated GFR ml/min BUN/Creatinine Ratio % Glucose (65-100) mg/dL Lactic Acid (0.7-2.0) mmol/L Calcium (8.4-10.2) mg/dL Magnesium (1.7-2.3) mg/dL Total Bilirubin (0.1-1.2) mg/dL AST (5-40) units/L ALT (7-56) units/L Alkaline Phosphatase (35-129) units/L Ammonia (25-60) umol/L Total Creatine Kinase (30-135) units/L CK-MB (CK-2) (0.0-4.0) ng/mL CK-MB (CK-2) Rel Index (0-4) Troponin T (0.00-0.029) ng/mL Total Protein (6.3-8.2) g/dL Albumin (3.9-5) g/dL Albumin/Globulin Ratio % TSH (0.270-4.200) mlU/mL Free T4 (0.76-1.46) ng/dL HCG, Qual (Negative) Salicylates (2.8-20.0) mg/dL Urine Opiates Screen Negative Urine Methadone Screen Negative Acetaminophen (10.0-30.0) ug/mL Ur Barbiturates Screen Negative Ur Phencyclidine Scrn Negative Ur Amphetamines Screen Negative U Benzodiazepines Scrn Negative Urine Cocaine Screen Negative U Marijuana (THC) Screen Negative Drugs of Abuse Note Disclamer Plasma/Serum Alcohol (0-0.07) % 03/24/22 03/24/22 03/24/22 Range/Units 05:35 05:35 05:35 WBC (4.5-11.0) K/mm3 RBC (3.65-5.03) M/mm3 Hgb (10.1-14.3) gm/dl Hct (30.3-42.9) % MCV (79-97) fl MCH (28-32) pg MCHC (30-34) % RDW (13.2-15.2) % Plt Count (140-440) K/mm3 Lymph % (Auto) (13.4-35.0) % [place] % (Auto) (0.0-7.3) % Eos % (Auto) (0.0-4.3) % Baso % (Auto) (0.0-1.8) % Lymph # (Auto) (1.2-5.4) K/mm3 [place] # (Auto) (0.0-0.8) K/mm3 Eos # (Auto) (0.0-0.4) K/mm3 Baso # (Auto) (0.0-0.1) K/mm3 Seg Neutrophils % (40.0-70.0) % Seg Neutrophils # (1.8-7.7) K/mm3 PT (12.2-14.9) Sec. INR (0.87-1.13) APTT (24.2-36.6) Sec. ABG pH (7.350-7.450) pH Units ABG pCO2 mm Hg ABG pO2 (80.0-90.0) mm Hg ABG HCO3 (20.0-26.0) mmol/L ABG O2 Saturation (95.0-99.0) % ABG O2 Content (0.0-44) ABG Base Excess (-2.0-3.0) mmol/L ABG Hemoglobin (12.0-16.0) gm/dl ABG Carboxyhemoglobin (0.0-5.0) % ABG Methemoglobin (0.0-1.5) % Oxyhemoglobin (95.0-99.0) % FiO2 % Sodium 139 (137-145) mmol/L Potassium 3.8 (3.6-5.0) mmol/L Chloride 104.4 (98-107) mmol/L Carbon Dioxide 22 (22-30) mmol/L Anion Gap 16 mmol/L BUN 14 (7-17) mg/dL Creatinine 0.5 L (0.6-1.2) mg/dL Estimated GFR > 60 ml/min BUN/Creatinine Ratio 28 % Glucose 89 (65-100) mg/dL Lactic Acid 1.90 (0.7-2.0) mmol/L Calcium 8.9 (8.4-10.2) mg/dL Magnesium 2.50 H (1.7-2.3) mg/dL Total Bilirubin 0.20 (0.1-1.2) mg/dL AST 23 (5-40) units/L ALT 33 (7-56) units/L Alkaline Phosphatase 115 (35-129) units/L Ammonia 54.0 (25-60) umol/L Total Creatine Kinase 281 H (30-135) units/L CK-MB (CK-2) (0.0-4.0) ng/mL CK-MB (CK-2) Rel Index (0-4) Troponin T (0.00-0.029) ng/mL Total Protein 7.2 (6.3-8.2) g/dL Albumin 3.6 L (3.9-5) g/dL Albumin/Globulin Ratio 1.0 % TSH (0.270-4.200) mlU/mL Free T4 (0.76-1.46) ng/dL HCG, Qual (Negative) Salicylates (2.8-20.0) mg/dL Urine Opiates Screen Urine Methadone Screen Acetaminophen (10.0-30.0) ug/mL Ur Barbiturates Screen Ur Phencyclidine Scrn Ur Amphetamines Screen U Benzodiazepines Scrn Urine Cocaine Screen U Marijuana (THC) Screen Drugs of Abuse Note Plasma/Serum Alcohol (0-0.07) % 03/24/22 03/24/22 03/24/22 Range/Units 05:35 05:35 05:35 WBC (4.5-11.0) K/mm3 RBC (3.65-5.03) M/mm3 Hgb (10.1-14.3) gm/dl Hct (30.3-42.9) % MCV (79-97) fl MCH (28-32) pg MCHC (30-34) % RDW (13.2-15.2) % Plt Count (140-440) K/mm3 Lymph % (Auto) (13.4-35.0) % [place] % (Auto) (0.0-7.3) % Eos % (Auto) (0.0-4.3) % Baso % (Auto) (0.0-1.8) % Lymph # (Auto) (1.2-5.4) K/mm3 [place] # (Auto) (0.0-0.8) K/mm3 Eos # (Auto) (0.0-0.4) K/mm3 Baso # (Auto) (0.0-0.1) K/mm3 Seg Neutrophils % (40.0-70.0) % Seg Neutrophils # (1.8-7.7) K/mm3 PT (12.2-14.9) Sec. INR (0.87-1.13) APTT (24.2-36.6) Sec. ABG pH (7.350-7.450) pH Units ABG pCO2 mm Hg ABG pO2 (80.0-90.0) mm Hg ABG HCO3 (20.0-26.0) mmol/L ABG O2 Saturation (95.0-99.0) % ABG O2 Content (0.0-44) ABG Base Excess (-2.0-3.0) mmol/L ABG Hemoglobin (12.0-16.0) gm/dl ABG Carboxyhemoglobin (0.0-5.0) % ABG Methemoglobin (0.0-1.5) % Oxyhemoglobin (95.0-99.0) % FiO2 % Sodium (137-145) mmol/L Potassium (3.6-5.0) mmol/L Chloride (98-107) mmol/L Carbon Dioxide (22-30) mmol/L Anion Gap mmol/L BUN (7-17) mg/dL Creatinine (0.6-1.2) mg/dL Estimated GFR ml/min BUN/Creatinine Ratio % Glucose (65-100) mg/dL Lactic Acid (0.7-2.0) mmol/L Calcium (8.4-10.2) mg/dL Magnesium (1.7-2.3) mg/dL Total Bilirubin (0.1-1.2) mg/dL AST (5-40) units/L ALT (7-56) units/L Alkaline Phosphatase (35-129) units/L Ammonia (25-60) umol/L Total Creatine Kinase (30-135) units/L CK-MB (CK-2) (0.0-4.0) ng/mL CK-MB (CK-2) Rel Index (0-4) Troponin T (0.00-0.029) ng/mL Total Protein (6.3-8.2) g/dL Albumin (3.9-5) g/dL Albumin/Globulin Ratio % TSH 0.476 (0.270-4.200) mlU/mL Free T4 1.17 (0.76-1.46) ng/dL HCG, Qual (Negative) Salicylates 2.3 L (2.8-20.0) mg/dL Urine Opiates Screen Urine Methadone Screen Acetaminophen 5.0 L (10.0-30.0) ug/mL Ur Barbiturates Screen Ur Phencyclidine Scrn Ur Amphetamines Screen U Benzodiazepines Scrn Urine Cocaine Screen U Marijuana (THC) Screen Drugs of Abuse Note Plasma/Serum Alcohol (0-0.07) % 03/24/22 03/24/22 03/24/22 Range/Units 05:35 05:35 05:35 WBC (4.5-11.0) K/mm3 RBC (3.65-5.03) M/mm3 Hgb (10.1-14.3) gm/dl Hct (30.3-42.9) % MCV (79-97) fl MCH (28-32) pg MCHC (30-34) % RDW (13.2-15.2) % Plt Count (140-440) K/mm3 Lymph % (Auto) (13.4-35.0) % [place] % (Auto) (0.0-7.3) % Eos % (Auto) (0.0-4.3) % Baso % (Auto) (0.0-1.8) % Lymph # (Auto) (1.2-5.4) K/mm3 [place] # (Auto) (0.0-0.8) K/mm3 Eos # (Auto) (0.0-0.4) K/mm3 Baso # (Auto) (0.0-0.1) K/mm3 Seg Neutrophils % (40.0-70.0) % Seg Neutrophils # (1.8-7.7) K/mm3 PT (12.2-14.9) Sec. INR (0.87-1.13) APTT (24.2-36.6) Sec. ABG pH (7.350-7.450) pH Units ABG pCO2 mm Hg ABG pO2 (80.0-90.0) mm Hg ABG HCO3 (20.0-26.0) mmol/L ABG O2 Saturation (95.0-99.0) % ABG O2 Content (0.0-44) ABG Base Excess (-2.0-3.0) mmol/L ABG Hemoglobin (12.0-16.0) gm/dl ABG Carboxyhemoglobin (0.0-5.0) % ABG Methemoglobin (0.0-1.5) % Oxyhemoglobin (95.0-99.0) % FiO2 % Sodium (137-145) mmol/L Potassium (3.6-5.0) mmol/L Chloride (98-107) mmol/L Carbon Dioxide (22-30) mmol/L Anion Gap mmol/L BUN (7-17) mg/dL Creatinine (0.6-1.2) mg/dL Estimated GFR ml/min BUN/Creatinine Ratio % Glucose (65-100) mg/dL Lactic Acid (0.7-2.0) mmol/L Calcium (8.4-10.2) mg/dL Magnesium (1.7-2.3) mg/dL Total Bilirubin (0.1-1.2) mg/dL AST (5-40) units/L ALT (7-56) units/L Alkaline Phosphatase (35-129) units/L Ammonia (25-60) umol/L Total Creatine Kinase 290 H (30-135) units/L CK-MB (CK-2) 9.9 H (0.0-4.0) ng/mL CK-MB (CK-2) Rel Index 3.4 (0-4) Troponin T < 0.010 (0.00-0.029) ng/mL Total Protein (6.3-8.2) g/dL Albumin (3.9-5) g/dL Albumin/Globulin Ratio % TSH (0.270-4.200) mlU/mL Free T4 (0.76-1.46) ng/dL HCG, Qual Negative (Negative) Salicylates (2.8-20.0) mg/dL Urine Opiates Screen Urine Methadone Screen Acetaminophen (10.0-30.0) ug/mL Ur Barbiturates Screen Ur Phencyclidine Scrn Ur Amphetamines Screen U Benzodiazepines Scrn Urine Cocaine Screen U Marijuana (THC) Screen Drugs of Abuse Note Plasma/Serum Alcohol < 0.01 (0-0.07) % 03/24/22 Range/Units 06:03 WBC (4.5-11.0) K/mm3 RBC (3.65-5.03) M/mm3 Hgb (10.1-14.3) gm/dl Hct (30.3-42.9) % MCV (79-97) fl MCH (28-32) pg MCHC (30-34) % RDW (13.2-15.2) % Plt Count (140-440) K/mm3 Lymph % (Auto) (13.4-35.0) % [place] % (Auto) (0.0-7.3) % Eos % (Auto) (0.0-4.3) % Baso % (Auto) (0.0-1.8) % Lymph # (Auto) (1.2-5.4) K/mm3 [place] # (Auto) (0.0-0.8) K/mm3 Eos # (Auto) (0.0-0.4) K/mm3 Baso # (Auto) (0.0-0.1) K/mm3 Seg Neutrophils % (40.0-70.0) % Seg Neutrophils # (1.8-7.7) K/mm3 PT (12.2-14.9) Sec. INR (0.87-1.13) APTT (24.2-36.6) Sec. ABG pH 7.380 (7.350-7.450) pH Units ABG pCO2 41.8 mm Hg ABG pO2 519.2 H (80.0-90.0) mm Hg ABG HCO3 24.1 (20.0-26.0) mmol/L ABG O2 Saturation 99.6 H (95.0-99.0) % ABG O2 Content 18.8 (0.0-44) ABG Base Excess -1.0 (-2.0-3.0) mmol/L ABG Hemoglobin 12.8 (12.0-16.0) gm/dl ABG Carboxyhemoglobin 2.6 (0.0-5.0) % ABG Methemoglobin 0.5 (0.0-1.5) % Oxyhemoglobin 96.5 (95.0-99.0) % FiO2 100 % Sodium (137-145) mmol/L Potassium (3.6-5.0) mmol/L Chloride (98-107) mmol/L Carbon Dioxide (22-30) mmol/L Anion Gap mmol/L BUN (7-17) mg/dL Creatinine (0.6-1.2) mg/dL Estimated GFR ml/min BUN/Creatinine Ratio % Glucose (65-100) mg/dL Lactic Acid (0.7-2.0) mmol/L Calcium (8.4-10.2) mg/dL Magnesium (1.7-2.3) mg/dL Total Bilirubin (0.1-1.2) mg/dL AST (5-40) units/L ALT (7-56) units/L Alkaline Phosphatase (35-129) units/L Ammonia (25-60) umol/L Total Creatine Kinase (30-135) units/L CK-MB (CK-2) (0.0-4.0) ng/mL CK-MB (CK-2) Rel Index (0-4) Troponin T (0.00-0.029) ng/mL Total Protein (6.3-8.2) g/dL Albumin (3.9-5) g/dL Albumin/Globulin Ratio % TSH (0.270-4.200) mlU/mL Free T4 (0.76-1.46) ng/dL HCG, Qual (Negative) Salicylates (2.8-20.0) mg/dL Urine Opiates Screen Urine Methadone Screen Acetaminophen (10.0-30.0) ug/mL Ur Barbiturates Screen Ur Phencyclidine Scrn Ur Amphetamines Screen U Benzodiazepines Scrn Urine Cocaine Screen U Marijuana (THC) Screen Drugs of Abuse Note Plasma/Serum Alcohol (0-0.07) % - EKG Data -: EKG Interpreted by Hi EKG shows normal: sinus rhythm, ST-T waves (NO STEMI) Rate: bradycardia (36) - Radiology Data Radiology results: report reviewed CHEST 1 VIEW INDICATION / CLINICAL INFORMATION: ETT placement STUDY TIME: 514 COMPARISON: 01/12/2022 FINDINGS: SUPPORT DEVICES: Endotracheal tube is seen with tip just above the sternal notch approximately 5.1 cm above the francesco. A nasogastric tube extends well below the diaphragm. HEART / MEDIASTINUM: Stable LUNGS / PLEURA: No significant acute pulmonary or pleural abnormality. No pneumothorax. ADDITIONAL FINDINGS: No significant additional findings. - Medical Decision Making 41-year-old female with suspected drug overdose presents to the hospital severely obtunded with a GCS of of 6. Accu-Chek normal range. CT head and labs ordered. Patient intubated and orders placed. Patient will be signed out to oncoming provider Dr. Bond to follow-up results and admit to ICU and consult critical care attending Critical Care Time: Yes Critical care time in (mins) excluding proc time.: 35 Critical care attestation.: If time is entered above; I have spent that time in minutes in the direct care of this critically ill patient, excluding procedure time. Critical Care Time: 35 Minutes of critical care time excluding procedures were used in the care of the patient. I came immediately to the bedside upon patient's arrival. I obtained history from EMS at the bedside. I discussed treatment plan with the nursing team members. I reviewed electronic record. Patient required multiple interventions and reassessments.
[2022-03-24 05:40] LABS: Amphetamine Screen,Urine Negative; Benzodiazepines Screen,Urine Negative; Cannabinoid Screen,Urine Negative; Cocaine Screen,Urine Negative; Methadone Screen,Urine Negative; Opiate Screen,Urine Negative
[2022-03-24] MEDS ORDERED: KETAMINE 500 MG/5 ML VIAL MDV IV ONE (05:46)
[2022-03-24] MEDS ORDERED: KETAMINE 500 MG/5 ML VIAL MDV ONE (05:47)
--- NOTE | 2022-03-24 05:52 | XRay Report ---
CHEST 1 VIEW INDICATION / CLINICAL INFORMATION: ETT placement STUDY TIME: 514 COMPARISON: 01/12/2022 FINDINGS: SUPPORT DEVICES: Endotracheal tube is seen with tip just above the sternal notch approximately 5.1 cm above the francesco. A nasogastric tube extends well below the diaphragm. HEART / MEDIASTINUM: Stable LUNGS / PLEURA: No significant acute pulmonary or pleural abnormality. No pneumothorax. ADDITIONAL FINDINGS: No significant additional findings. Signer Name: Graham Sahni MD Signed: 03/24/2022 5:48 AM Workstation Name: [id number]
[2022-03-24 05:53] LABS: Hematocrit 43.7 % (30.3-42.9); Mean Corpuscular HGB Conc 32 % (30-34); Mean Corpuscular Volume 93 fl (79-97); Platelet Count 266 K/mm3 (140-440); Red Blood Count 4.72 M/mm3 (3.65-5.03); Red Cell Distribution Width 15.2 % (13.2-15.2)
[2022-03-24 05:55] LABS: Lymphocytes % (Auto) 19.6 % (13.4-35.0); Monocytes % (Auto) 5.3 % (0.0-7.3)
[2022-03-24 05:56] LABS: Basophils % (Auto) 0.7 % (0.0-1.8); Eosinophils % (Auto) 0.8 % (0.0-4.3); INR 0.87 (0.87-1.13)
[2022-03-24 05:57] LABS: Basophils # (Auto) 0.1 K/mm3 (0.0-0.1); Eosinophils # (Auto) 0.1 K/mm3 (0.0-0.4); Lymphocytes # (Auto) 2.2 K/mm3 (1.2-5.4); Monocytes # (Auto) 0.6 K/mm3 (0.0-0.8); Partial Thromboplastin Time 28.4 Sec. (24.2-36.6)
[2022-03-24 06:04] LABS: Alanine Aminotransferase 33 units/L (7-56); Albumin 3.6 g/dL (3.9-5); Blood Urea Nitrogen 14 mg/dL (7-17); Calcium 8.9 mg/dL (8.4-10.2); Hemolysis Index 27
[2022-03-24 06:05] LABS: BUN/Creatinine Ratio 28
[2022-03-24 06:20] LABS: Free T4 (Free Thyroxine) 1.17 ng/dL (0.76-1.46)
[2022-03-24 06:27] LABS: ABG HCO3 24.1 mmol/L (20.0-26.0); ABG Methemoglobin 0.5 % (0.0-1.5); ABG Oxygen Saturation 99.6 % (95.0-99.0); ABG PCO2 41.8 mm Hg; ABG PH 7.38 pH Units (7.350-7.450)
[2022-03-24 06:29] LABS: ABG PO2 519.2 mm Hg (80.0-90.0)
[2022-03-24 06:33] LABS: Creatine Kinase MB 9.9 ng/mL (0.0-4.0)
[2022-03-24] MEDS ORDERED: ETOMIDATE 20 MG/10 ML INJ IV ONE (06:35)
[2022-03-24] MEDS ORDERED: SUCCINYLCHOLINE CHLORIDE 200 MG/10 ML INJ MDV ONE (06:35)
--- NOTE | 2022-03-24 06:46 | Cat Scan Report ---
CT HEAD WITHOUT CONTRAST INDICATION: AMS, POSSIBLE DRUG OVERDOSE, fall TECHNIQUE: All CT scans at this location are performed using CT dose reduction for ALARA by means of automated exposure control. COMPARISON: None available. FINDINGS: BRAIN: No hemorrhage or mass effect are seen. No evidence of acute infarction is noted. ORBITS: Normal as visualized. SOFT TISSUES OF HEAD: Normal. CALVARIUM: Normal. VISUALIZED PARANASAL SINUSES AND MASTOID AIR CELLS: Bilateral ethmoid moderate mucosal thickening is seen. No air-fluid levels are noted. ADDITIONAL FINDINGS: None. IMPRESSION: No acute intracranial abnormality. CT CERVICAL SPINE WITHOUT CONTRAST INDICATION: AMS, POSSIBLE DRUG OVERDOSE, fall TECHNIQUE: All CT scans at this location are performed using CT dose reduction for ALARA by means of automated exposure control. Axial CT images were obtained through the cervical spine. Sagittal and co vito reformatted images were produced. COMPARISON: None available. Cervical spine findings: Degenerative changes are moderately prominent in the mid cervical spine. Mil d arthritic changes are seen. No obvious disc herniation is noted. No fractures are seen. No signific ant subluxations are noted. There is moderate sclerosis in the right aspect of the C4 vertebral body which is not clearly a bone island. No cortical breakthrough is seen. No similar lesions are noted. Additional findings: None. IMPRESSION: 1. No significant acute cervical spine findings. 2. Moderate sclerosis of the C4 vertebral body. Sclerotic metastatic disease is not excluded though I see no similar areas on this study. Bone scintigraphy may be useful. Signer Name: Graham Sahni MD Signed: 03/24/2022 6:42 AM Workstation Name: [id number]
[2022-03-24] MEDS ORDERED: ACETAMINOPHEN 325 MG/10.15 ML ORAL LIQD UNIT DOSE FEEDTUBE PRN (08:00)
[2022-03-24] MEDS ORDERED: ONDANSETRON 4 MG/2 ML INJ IV PRN (08:00)
[2022-03-24] MEDS ORDERED: MORPHINE 2 MG/1 ML INJ IV PRN (08:00)
[2022-03-24] MEDS ORDERED: ACETAMINOPHEN 325 MG TAB PO PRN (08:00)
[2022-03-24] MEDS ORDERED: DEXTROSE 50% IN WATER (25GM) 50 ML SYRINGE IV PRN (08:00)
[2022-03-24] MEDS ORDERED: NALOXONE 0.4 MG/1 ML INJ IV PRN (08:00)
[2022-03-24] MEDS ORDERED: HYDROmorphone 0.5 MG/0.5 ML INJ IV PRN (08:00)
[2022-03-24] MEDS ORDERED: INSULIN REGULAR, HUMAN 100 UNITS/1 ML SUB-Q SCH (08:00)
--- NOTE | 2022-03-24 08:45 | History and Physical Report ---
<DARINEL GARCIA - Last Filed: 03/24/22 13:18> History of Present Illness Date of examination: 03/24/22 Chief complaint: ams/resp failure History of present illness: This is a 41-year-old female with active polysubstance abuse (EtOH, nicotine, methamphetamine, "ether"), congenital heart disease, acute kidney injury requiring HD in the past, IBS and schizoaffective disorder who presented to emergency department on 03/24 with suspected drug overdose and altered mental status via EMS. Per EMS patient was picked up from male friend's house who reported that she drink substance and passed out and became unresponsive. Upon EMS arrival patient respiratory rate noted at 4 with decrease expansiveness and she was given Narcan without response and Accu-Chek report of blood sugar of 10. Upon arrival to the emergency department her SPO2 was 98% on room air with pinpoint pupils, unresponsive to sternal rub and had bradycardia and the decision was made to intubate the patient for airway protection due to deep responsiveness. Patient had leukocytosis, hypermagnesemia and slightly elevated creatinine kinase on lab work. Patient was admitted to the hospitalist service with consults to CCM and acute hypoxic respiratory failure with suspected drug overdose. At the time of my exam patient was sitting up towards the end of the bed and verified her name is Chiqui Montoya by head nod. Patient was on a propofol gtt (unsure if it was infusing) and she had four-point restraints in place. Patient able to follow commands coupled with minimal vent settings the decision was made to extubate after verification with Dr. Shelton. Patient was extubated at bedside by RT Nitish. After extubation interview was conducted with patient denied fevers, chills, hematemesis, hemoptysis, recent weight loss, cough, fatigue, fevers, chest pain or shortness of breath. Patient denies any recent sick contacts or known exposure to COVID-19. Advance care planning conducted at bedside. Past History Past Medical History: other (IBS, schizoaffective disorder, polysubstance abuse) Past Surgical History: No surgical history Social history: , lives with family, smoking, alcohol abuse, IV drug use, full code Family history: diabetes Medications and Allergies Allergies Allergy/AdvReac Type Severity Reaction Status Date / Time No Known Allergies Allergy Verified 05/05/14 03:51 Home Medications Medication Instructions Recorded Confirmed Last Taken Type Perphenazine 8 mg PO HS 09/08/13 07/30/14 05/04/14 21:00 History Sertraline [Zoloft] 200 mg PO QDAY 09/08/13 07/30/14 05/04/14 11:00 History Clindamycin [Cleocin] 300 mg PO Q8H #30 cap 07/30/14 Unknown Rx HYDROcodone/APAP 7.5-325 [Clyo 1 each PO Q6HR PRN #14 tablet 07/30/14 Unknown Rx 7.5/325 mg] HYDROcodone/APAP 5-325 [Clyo 1 each PO Q6HR PRN #10 tablet 11/23/16 Unknown Rx 5/325] Penicillin Vk [Veetids TAB] 250 mg PO QID #28 tablet 11/23/16 Unknown Rx Ketorolac [Toradol] 10 mg PO Q6H PRN #20 tablet 12/03/18 Unknown Rx Active Meds: Active Medications Acetaminophen (Acetaminophen 325 Mg/10.15 Ml Oral Liqd Unit Dose) 650 mg FEEDTUBE Q6H PRN PRN Reason: Pain MILD(1-3)/Fever >100.5/[facility] Dextrose (Dextrose 50% In Water (25gm) 50 Ml Syringe) 50 ml IV Q30MIN PRN; Protocol PRN Reason: Hypoglycemia Famotidine (Famotidine 20 Mg/2 Ml Inj) 20 mg IV BID [facility] Heparin Sodium (Porcine) (Heparin 5,000 Unit/1 Ml Vial) 5,000 unit SUB-Q Q12HR [facility] Hydromorphone HCl (Hydromorphone 0.5 Mg/0.5 Ml Inj) 0.5 mg IV Q3H PRN PRN Reason: Pain , Severe (7-10) Hydrophilic Ointment (Lip Therapy Vaseline) 1 applic TP Q2HR PRN PRN Reason: Dry Lips Insulin Human Regular (Insulin Regular, Human 100 Units/1 Ml) 0 units SUB-Q Q6HR [facility]; Protocol Miscellaneous Medication (Perphenazine [Perphenazine]) 8 mg PO HS [facility] Morphine Sulfate (Morphine 2 Mg/1 Ml Inj) 2 mg IV Q4H PRN PRN Reason: Pain, Moderate (4-6) Multi-Ingred Cream/Lotion/Oil/Oint (Mineral Oil/Petrolatum, White Ophth Oint 3.5 Gm) 1 applic OU Q4HR PRN PRN Reason: Dry Eye(s) Naloxone HCl (Naloxone 0.4 Mg/1 Ml Inj) 0.1 mg IV Q2MIN PRN PRN Reason: Res Rate </= 8 or 02 SAT < 92% Ondansetron HCl (Ondansetron 4 Mg/2 Ml Inj) 4 mg IV Q4H PRN PRN Reason: Nausea And Vomiting Senna (Sennosides Oral Liqd 8.8 Mg/5 Ml Oral Liqd) 8.8 mg FEEDTUBE BID [facility] Senna (Sennosides 8.6 Mg Tab) 17.2 mg PO QHS [facility] Sertraline HCl (Sertraline 100 Mg Tab) 200 mg PO QDAY [facility] Sodium Chloride (Sodium Chloride 0.9% 10 Ml Flush Syringe) 10 ml IV BID [facility] Sodium Chloride (Sodium Chloride 0.9% 10 Ml Flush Syringe) 10 ml IV PRN PRN PRN Reason: LINE FLUSH Review of Systems Constitutional: no weight loss, no weight gain, no fever, no chills, no sweats, no fatigue, no malaise Ears, nose, mouth and throat: no ear pain, no ear discharge, no tinnitis Cardiovascular: no chest pain, no orthopnea, no palpitations, no rapid/irregular heart beat Respiratory: no cough, no cough with sputum, no excessive sputum, no hemoptysis, no shortness of breath Gastrointestinal: no abdominal pain, no nausea, no vomiting, no diarrhea Genitourinary Female: no dysuria, no hematuria Rectal: no incontinence Musculoskeletal: no neck pain, no shooting arm pain, no arm numbness/tingling, no shooting leg pain, no leg numbness/tingling Integumentary: no rash, no pruritis, no redness Neurological: no transient paralysis, no paralysis, no weakness, no parathesias, no numbness Psychiatric: no anxiety, no memory loss Endocrine: no polyphagia, no polydipsia, no polyuria, no nocturia Hematologic/Lymphatic: no easy bruising, no easy bleeding Allergic/Immunologic: no allergic rhinitis Exam - Constitutional Vitals: Temp Pulse Resp BP Pulse Ox 97.8 F 55 L 16 125/88 100 03/24/22 05:15 03/24/22 08:00 03/24/22 06:16 03/24/22 08:00 03/24/22 08:00 General appearance: Present: no acute distress - EENT Eyes: Present: PERRL, EOM intact ENT: poor dentition - Neck Neck: Present: normal ROM - Respiratory Respiratory effort: normal Respiratory: bilateral: CTA - Cardiovascular Rhythm: regular Heart Sounds: Present: S1 & S2. Absent: systolic murmur, diastolic murmur - Extremities Extremities: no ischemia, pulses intact, pulses symmetrical, No edema, normal temperature, normal color, Full ROM Peripheral Pulses: within normal limits - Abdominal General gastrointestinal: Present: soft, non-tender, normal bowel sounds - Integumentary Integumentary: Present: clear, warm, dry - Musculoskeletal Musculoskeletal: strength equal bilaterally - Psychiatric Psychiatric: appropriate mood/affect, cooperative - Neurologic Neurologic: CNII-XII intact, no focal deficits, moves all extremities - Allied Health Allied health notes reviewed: nursing, RT HEART Score - HEART Score History: Slightly suspicious EKG: Normal Age: < 45 Risk factors: 1-2 risk factors Troponin: Troponin T < 0.010 ng/mL (0.00-0.029) 03/24/22 05:35 Results - Labs CBC & Chem 7: 03/24/22 05:35 03/24/22 05:35 Labs: Laboratory Last Values WBC 11.2 K/mm3 (4.5-11.0) H 03/24/22 05:35 RBC 4.72 M/mm3 (3.65-5.03) 03/24/22 05:35 Hgb 14.0 gm/dl (10.1-14.3) 03/24/22 05:35 Hct 43.7 % (30.3-42.9) H 03/24/22 05:35 MCV 93 fl (79-97) 03/24/22 05:35 MCH 30 pg (28-32) 03/24/22 05:35 MCHC 32 % (30-34) 03/24/22 05:35 RDW 15.2 % (13.2-15.2) 03/24/22 05:35 Plt Count 266 K/mm3 (140-440) 03/24/22 05:35 Lymph % (Auto) 19.6 % (13.4-35.0) 03/24/22 05:35 [place] % (Auto) 5.3 % (0.0-7.3) 03/24/22 05:35 Eos % (Auto) 0.8 % (0.0-4.3) 03/24/22 05:35 Baso % (Auto) 0.7 % (0.0-1.8) 03/24/22 05:35 Lymph # (Auto) 2.2 K/mm3 (1.2-5.4) 03/24/22 05:35 [place] # (Auto) 0.6 K/mm3 (0.0-0.8) 03/24/22 05:35 Eos # (Auto) 0.1 K/mm3 (0.0-0.4) 03/24/22 05:35 Baso # (Auto) 0.1 K/mm3 (0.0-0.1) 03/24/22 05:35 Seg Neutrophils % 73.6 % (40.0-70.0) H 03/24/22 05:35 Seg Neutrophils # 8.3 K/mm3 (1.8-7.7) H 03/24/22 05:35 PT 12.7 Sec. (12.2-14.9) 03/24/22 05:35 INR 0.87 (0.87-1.13) 03/24/22 05:35 APTT 28.4 Sec. (24.2-36.6) 03/24/22 05:35 ABG pH 7.380 pH Units (7.350-7.450) 03/24/22 06:03 ABG pCO2 41.8 mm Hg 03/24/22 06:03 ABG pO2 519.2 mm Hg (80.0-90.0) H 03/24/22 06:03 ABG HCO3 24.1 mmol/L (20.0-26.0) 03/24/22 06:03 ABG O2 Saturation 99.6 % (95.0-99.0) H 03/24/22 06:03 ABG O2 Content 18.8 (0.0-44) 03/24/22 06:03 ABG Base Excess -1.0 mmol/L (-2.0-3.0) 03/24/22 06:03 ABG Hemoglobin 12.8 gm/dl (12.0-16.0) 03/24/22 06:03 ABG Carboxyhemoglobin 2.6 % (0.0-5.0) 03/24/22 06:03 ABG Methemoglobin 0.5 % (0.0-1.5) 03/24/22 06:03 Oxyhemoglobin 96.5 % (95.0-99.0) 03/24/22 06:03 FiO2 100 % 03/24/22 06:03 Sodium 139 mmol/L (137-145) 03/24/22 05:35 Potassium 3.8 mmol/L (3.6-5.0) 03/24/22 05:35 Chloride 104.4 mmol/L (98-107) 03/24/22 05:35 Carbon Dioxide 22 mmol/L (22-30) 03/24/22 05:35 Anion Gap 16 mmol/L 03/24/22 05:35 BUN 14 mg/dL (7-17) 03/24/22 05:35 Creatinine 0.5 mg/dL (0.6-1.2) L 03/24/22 05:35 Estimated GFR > 60 ml/min 03/24/22 05:35 BUN/Creatinine Ratio 28 % 03/24/22 05:35 Glucose 89 mg/dL (65-100) 03/24/22 05:35 Lactic Acid 1.90 mmol/L (0.7-2.0) 03/24/22 05:35 Calcium 8.9 mg/dL (8.4-10.2) 03/24/22 05:35 Magnesium 2.50 mg/dL (1.7-2.3) H 03/24/22 05:35 Total Bilirubin 0.20 mg/dL (0.1-1.2) 03/24/22 05:35 AST 23 units/L (5-40) 03/24/22 05:35 ALT 33 units/L (7-56) 03/24/22 05:35 Alkaline Phosphatase 115 units/L (35-129) 03/24/22 05:35 Ammonia 54.0 umol/L (25-60) 03/24/22 05:35 Total Creatine Kinase 281 units/L (30-135) H 03/24/22 05:35 Total Creatine Kinase 290 units/L (30-135) H 03/24/22 05:35 CK-MB (CK-2) 9.9 ng/mL (0.0-4.0) H 03/24/22 05:35 CK-MB (CK-2) Rel Index 3.4 (0-4) 03/24/22 05:35 Troponin T < 0.010 ng/mL (0.00-0.029) 03/24/22 05:35 Total Protein 7.2 g/dL (6.3-8.2) 03/24/22 05:35 Albumin 3.6 g/dL (3.9-5) L 03/24/22 05:35 Albumin/Globulin Ratio 1.0 % 03/24/22 05:35 TSH 0.476 mlU/mL (0.270-4.200) 03/24/22 05:35 Free T4 1.17 ng/dL (0.76-1.46) 03/24/22 05:35 HCG, Qual Negative (Negative) 03/24/22 05:35 Salicylates 2.3 mg/dL (2.8-20.0) L 03/24/22 05:35 Urine Opiates Screen Negative 03/24/22 05:22 Urine Methadone Screen Negative 03/24/22 05:22 Acetaminophen 5.0 ug/mL (10.0-30.0) L 03/24/22 05:35 Ur Barbiturates Screen Negative 03/24/22 05:22 Ur Phencyclidine Scrn Negative 03/24/22 05:22 Ur Amphetamines Screen Negative 03/24/22 05:22 U Benzodiazepines Scrn Negative 03/24/22 05:22 Urine Cocaine Screen Negative 03/24/22 05:22 U Marijuana (THC) Screen Negative 03/24/22 05:22 Drugs of Abuse Note Disclamer 03/24/22 05:22 Plasma/Serum Alcohol < 0.01 % (0-0.07) 03/24/22 05:35 Assessment and Plan Assessment and plan: This is a 41-year-old female with active polysubstance abuse, "congenital heart disease", IBS and schizoaffective disorder admitted with suspected drug overdose and intubated for airway protection Neuro: h/o polysubstance abuse, schizoaffective disorder -Sedated with propofol -Turned off for extubation -Avoid delirium -Reorientation as needed -Maintain sleep-wake cycle -As needed analgesia -CT head with no acute findings -CT Cspine without acute findings -Restart home antipsychotic medication -UDS negative, plasma/serum alcohol <0.01 -Patient denies SI but family states she has been taking questionable actions and speaks of suicidal ideation -Psych consulted, appreciate recommendations -1013 hold per psych Cardiac: SB -Remote tele -Blood pressure monitoring per protocol -PRN hydral Respiratory: Acute hypoxic respiratory failure, current nicotine abuse -Presented with decreased responsiveness and respiratory rate -Intubated in the emergency department on 03/24 with 7.50 ETT at 20 at the lips and extubated 03/24 -CCM consulted, appreciate recommendations -A.m. vent settings: PRVC/AC rate 16, tidal volume 450, PEEP 6, FiO2 25% -See RT notes for titration -weaned to NC -A.m. ABG and CXR noted -VAP bundle -SPO2 monitoring -Smoking cessation counseling provided GI: Moderate protein calorie malnutrition -PPI -NTR consulted for tube feedings -RN to perform swallow eval -if fails, replace DHT -BR: Senna : NAD -Record intake and output -Renally dose medications -Avoid nephrotoxic medications -Trend BMP ID:NAD -f/u blood culture -Monitor WBC and temperature curve Endo: NAD -Avoid hypoglycemia -SSI -Accu-Cheks q 6 Heme: Leukocytosis -Trend CBC -Transfuse hemoglobin less than 7 -Lovenox subq -Monitor for signs of bleeding -SCDs to BLE while in bed Advance care planning +30 min Dispo: downgrade from ICU to floor The high probability of a clinically significant, sudden or life threatening deterioration of the [resp] system(s) required my full and direct attention, intervention and personal management. The aggregate critical care time was [90] minutes. This time is in addition to time spent performing reported procedures but includes the following: [x] Data Review and interpretation [x] Patient assessment and monitoring of vital signs [x] Documentation [x] Medication orders and management Advance Directives: No VTE prophylaxis?: Chemical, Mechanical Plan of care discussed with patient/family: Yes <ALYSSA SHELTON - Last Filed: 03/25/22 16:57> History of Present Illness Date of admission: 03/24/22 07:33 Medications and Allergies Active Meds: Active Medications Acetaminophen (Acetaminophen 325 Mg/10.15 Ml Oral Liqd Unit Dose) 650 mg FEEDTUBE Q6H PRN PRN Reason: Pain MILD(1-3)/Fever >100.5/[place] Dextrose (Dextrose 50% In Water (25gm) 50 Ml Syringe) 50 ml IV Q30MIN PRN; Protocol PRN Reason: Hypoglycemia Divalproex Sodium (Divalproex Dr 125 Mg Tab) 125 mg PO BID [facility] Enoxaparin Sodium (Enoxaparin 40 Mg/0.4 Ml Inj) 40 mg SUB-Q QDAY@2200 [facility]; Protocol Last Admin: 03/24/22 22:00 Dose: Not Given Famotidine (Famotidine 20 Mg Tab) 20 mg PO BID [facility] Last Admin: 03/25/22 09:21 Dose: 20 mg Haloperidol Lactate (Haloperidol Lactate 5 Mg/1 Ml Inj) 5 mg IM Q6H PRN PRN Reason: Agitation Hydralazine HCl (Hydralazine 20 Mg/1 Ml Inj) 10 mg IV Q4H PRN PRN Reason: Hypertension Hydromorphone HCl (Hydromorphone 0.5 Mg/0.5 Ml Inj) 0.5 mg IV Q3H PRN PRN Reason: Pain , Severe (7-10) Hydrophilic Ointment (Lip Therapy Vaseline) 1 applic TP Q2HR PRN PRN Reason: Dry Lips Insulin Human Regular (Insulin Regular, Human 100 Units/1 Ml) 0 units SUB-Q Q6HR [facility]; Protocol Last Admin: 03/25/22 13:05 Dose: Not Given Lorazepam (Lorazepam 2 Mg/Ml Vial) 2 mg IM Q4H PRN PRN Reason: Agitation Morphine Sulfate (Morphine 2 Mg/1 Ml Inj) 2 mg IV Q4H PRN PRN Reason: Pain, Moderate (4-6) Multi-Ingred Cream/Lotion/Oil/Oint (Mineral Oil/Petrolatum, White Ophth Oint 3.5 Gm) 1 applic OU Q4HR PRN PRN Reason: Dry Eye(s) Naloxone HCl (Naloxone 0.4 Mg/1 Ml Inj) 0.1 mg IV Q2MIN PRN PRN Reason: Res Rate </= 8 or 02 SAT < 92% Ondansetron HCl (Ondansetron 4 Mg/2 Ml Inj) 4 mg IV Q4H PRN PRN Reason: Nausea And Vomiting Perphenazine (Perphenazine 4 Mg Tab) 8 mg PO QHS [facility] Last Admin: 03/25/22 00:40 Dose: Not Given Quetiapine Fumarate (Quetiapine 100 Mg Tab) 100 mg PO BID [facility] Last Admin: 03/25/22 09:21 Dose: 100 mg Senna (Sennosides 8.6 Mg Tab) 17.2 mg PO QHS [facility] Last Admin: 03/24/22 22:14 Dose: 17.2 mg Sertraline HCl (Sertraline 100 Mg Tab) 200 mg PO QDAY [facility] Last Admin: 03/25/22 09:21 Dose: 200 mg Sodium Chloride (Sodium Chloride 0.9% 10 Ml Flush Syringe) 10 ml IV BID [facility] Last Admin: 03/25/22 09:22 Dose: 10 ml Sodium Chloride (Sodium Chloride 0.9% 10 Ml Flush Syringe) 10 ml IV PRN PRN PRN Reason: LINE FLUSH Trazodone HCl (Trazodone 50 Mg Tab) 50 mg PO QHS [facility] Last Admin: 03/24/22 22:14 Dose: 50 mg Exam - Constitutional Vitals: Temp Pulse Resp BP Pulse Ox 98.1 F 91 H 20 120/78 96 03/24/22 14:08 03/24/22 14:08 03/24/22 20:53 03/24/22 14:08 03/25/22 10:12 HEART Score - HEART Score Troponin: Troponin T < 0.010 ng/mL (0.00-0.029) 03/24/22 05:35 Results - Labs CBC & Chem 7: 03/25/22 10:01 03/25/22 10:01 Labs: Laboratory Last Values WBC 5.3 K/mm3 (4.5-11.0) 03/25/22 10:01 RBC 4.26 M/mm3 (3.65-5.03) 03/25/22 10:01 Hgb 12.6 gm/dl (10.1-14.3) 03/25/22 10:01 Hct 38.0 % (30.3-42.9) 03/25/22 10:01 MCV 89 fl (79-97) 03/25/22 10:01 MCH 30 pg (28-32) 03/25/22 10:01 MCHC 33 % (30-34) 03/25/22 10:01 RDW 14.8 % (13.2-15.2) 03/25/22 10:01 Plt Count 197 K/mm3 (140-440) 03/25/22 10:01 Lymph % (Auto) 25.0 % (13.4-35.0) 03/25/22 10:01 [place] % (Auto) 8.9 % (0.0-7.3) H 03/25/22 10:01 Eos % (Auto) 1.1 % (0.0-4.3) 03/25/22 10:01 Baso % (Auto) 1.1 % (0.0-1.8) 03/25/22 10:01 Lymph # (Auto) 1.3 K/mm3 (1.2-5.4) 03/25/22 10:01 [place] # (Auto) 0.5 K/mm3 (0.0-0.8) 03/25/22 10:01 Eos # (Auto) 0.1 K/mm3 (0.0-0.4) 03/25/22 10:01 Baso # (Auto) 0.1 K/mm3 (0.0-0.1) 03/25/22 10:01 Seg Neutrophils % 63.9 % (40.0-70.0) 03/25/22 10:01 Seg Neutrophils # 3.4 K/mm3 (1.8-7.7) 03/25/22 10:01 PT 12.7 Sec. (12.2-14.9) 03/24/22 05:35 INR 0.87 (0.87-1.13) 03/24/22 05:35 APTT 28.4 Sec. (24.2-36.6) 03/24/22 05:35 ABG pH 7.380 pH Units (7.350-7.450) 03/24/22 06:03 ABG pCO2 41.8 mm Hg 03/24/22 06:03 ABG pO2 519.2 mm Hg (80.0-90.0) H 03/24/22 06:03 ABG HCO3 24.1 mmol/L (20.0-26.0) 03/24/22 06:03 ABG O2 Saturation 99.6 % (95.0-99.0) H 03/24/22 06:03 ABG O2 Content 18.8 (0.0-44) 03/24/22 06:03 ABG Base Excess -1.0 mmol/L (-2.0-3.0) 03/24/22 06:03 ABG Hemoglobin 12.8 gm/dl (12.0-16.0) 03/24/22 06:03 ABG Carboxyhemoglobin 2.6 % (0.0-5.0) 03/24/22 06:03 ABG Methemoglobin 0.5 % (0.0-1.5) 03/24/22 06:03 Oxyhemoglobin 96.5 % (95.0-99.0) 03/24/22 06:03 FiO2 100 % 03/24/22 06:03 Sodium 140 mmol/L (137-145) 03/25/22 10:01 Potassium 3.4 mmol/L (3.6-5.0) L 03/25/22 10:01 Chloride 102.8 mmol/L (98-107) 03/25/22 10:01 Carbon Dioxide 28 mmol/L (22-30) 03/25/22 10:01 Anion Gap 13 mmol/L 03/25/22 10:01 BUN 5 mg/dL (7-17) L 03/25/22 10:01 Creatinine 0.5 mg/dL (0.6-1.2) L 03/25/22 10:01 Estimated GFR > 60 ml/min 03/25/22 10:01 BUN/Creatinine Ratio 10 % 03/25/22 10:01 Glucose 96 mg/dL (65-100) 03/25/22 10:01 POC Glucose 105 mg/dL (70-105) 03/25/22 16:47 Lactic Acid 1.90 mmol/L (0.7-2.0) 03/24/22 05:35 Calcium 8.9 mg/dL (8.4-10.2) 03/25/22 10:01 Magnesium 2.50 mg/dL (1.7-2.3) H 03/24/22 05:35 Total Bilirubin 0.20 mg/dL (0.1-1.2) 03/24/22 05:35 AST 23 units/L (5-40) 03/24/22 05:35 ALT 33 units/L (7-56) 03/24/22 05:35 Alkaline Phosphatase 115 units/L (35-129) 03/24/22 05:35 Ammonia 54.0 umol/L (25-60) 03/24/22 05:35 Total Creatine Kinase 281 units/L (30-135) H 03/24/22 05:35 Total Creatine Kinase 290 units/L (30-135) H 03/24/22 05:35 CK-MB (CK-2) 9.9 ng/mL (0.0-4.0) H 03/24/22 05:35 CK-MB (CK-2) Rel Index 3.4 (0-4) 03/24/22 05:35 Troponin T < 0.010 ng/mL (0.00-0.029) 03/24/22 05:35 Total Protein 7.2 g/dL (6.3-8.2) 03/24/22 05:35 Albumin 3.6 g/dL (3.9-5) L 03/24/22 05:35 Albumin/Globulin Ratio 1.0 % 03/24/22 05:35 TSH 0.476 mlU/mL (0.270-4.200) 03/24/22 05:35 Free T4 1.17 ng/dL (0.76-1.46) 03/24/22 05:35 HCG, Qual Negative (Negative) 03/24/22 05:35 Salicylates 2.3 mg/dL (2.8-20.0) L 03/24/22 05:35 Urine Opiates Screen Negative 03/24/22 05:22 Urine Methadone Screen Negative 03/24/22 05:22 Acetaminophen 5.0 ug/mL (10.0-30.0) L 03/24/22 05:35 Ur Barbiturates Screen Negative 03/24/22 05:22 Ur Phencyclidine Scrn Negative 03/24/22 05:22 Ur Amphetamines Screen Negative 03/24/22 05:22 U Benzodiazepines Scrn Negative 03/24/22 05:22 Urine Cocaine Screen Negative 03/24/22 05:22 U Marijuana (THC) Screen Negative 03/24/22 05:22 Drugs of Abuse Note Disclamer 03/24/22 05:22 Plasma/Serum Alcohol < 0.01 % (0-0.07) 03/24/22 05:35 Han/IV: Voiding Method Toilet Assessment and Plan Assessment and plan: I saw and evaluated the patient. Discussed with the nurse practitioner and agree with their findings and plan as documented in this note.
[2022-03-24] MEDS ORDERED: hydrALAZINE 20 MG/1 ML INJ IV PRN (09:00)
[2022-03-24] MEDS ORDERED: SENNOSIDES/DOCUSATE SODIUM 8.6/50 MG TAB FEEDTUBE SCH (10:00)
[2022-03-24] MEDS ORDERED: HEPARIN 5,000 UNIT/1 ML VIAL SUB-Q SCH (10:00)
[2022-03-24] MEDS ORDERED: SENNOSIDES ORAL LIQD 8.8 MG/5 ML ORAL LIQD FEEDTUBE SCH (10:00)
--- NOTE | 2022-03-24 12:16 | Consultation ---
History of Present Illness Consult date: 03/24/22 Requesting physician: SOPHY BOND Reason for consult: other (Acute Respiratory Faiulure; Drug Overdose) History of present illness: PULMONARY/CCM CONSULT NOTE (Full dictation # [id number]) Please see dictated notes for full details Past History Past Medical History: other (IBS, schizoaffective disorder, polysubstance abuse) Past Surgical History: No surgical history Social history: , lives with family, smoking, alcohol abuse, IV drug use, full code Family history: diabetes Medications and Allergies Allergies Allergy/AdvReac Type Severity Reaction Status Date / Time No Known Allergies Allergy Verified 05/05/14 03:51 Home Medications Medication Instructions Recorded Confirmed Last Taken Type Perphenazine 8 mg PO HS 09/08/13 07/30/14 05/04/14 21:00 History Sertraline [Zoloft] 200 mg PO QDAY 09/08/13 07/30/14 05/04/14 11:00 History Clindamycin [Cleocin] 300 mg PO Q8H #30 cap 07/30/14 Unknown Rx HYDROcodone/APAP 7.5-325 [[place] 1 each PO Q6HR PRN #14 tablet 07/30/14 Unknown Rx 7.5/325 mg] HYDROcodone/APAP 5-325 [[place] 1 each PO Q6HR PRN #10 tablet 11/23/16 Unknown Rx 5/325] Penicillin Vk [Veetids TAB] 250 mg PO QID #28 tablet 11/23/16 Unknown Rx Ketorolac [Toradol] 10 mg PO Q6H PRN #20 tablet 12/03/18 Unknown Rx Active Meds: Active Medications Acetaminophen (Acetaminophen 325 Mg/10.15 Ml Oral Liqd Unit Dose) 650 mg FEEDTUBE Q6H PRN PRN Reason: Pain MILD(1-3)/Fever >100.5/[facility] Dextrose (Dextrose 50% In Water (25gm) 50 Ml Syringe) 50 ml IV Q30MIN PRN; Protocol PRN Reason: Hypoglycemia Enoxaparin Sodium (Enoxaparin 40 Mg/0.4 Ml Inj) 40 mg SUB-Q QDAY@2200 [facility]; Protocol Famotidine (Famotidine 20 Mg/2 Ml Inj) 20 mg IV BID [facility] Hydralazine HCl (Hydralazine 20 Mg/1 Ml Inj) 10 mg IV Q4H PRN PRN Reason: Hypertension Hydromorphone HCl (Hydromorphone 0.5 Mg/0.5 Ml Inj) 0.5 mg IV Q3H PRN PRN Reason: Pain , Severe (7-10) Hydrophilic Ointment (Lip Therapy Vaseline) 1 applic TP Q2HR PRN PRN Reason: Dry Lips Insulin Human Regular (Insulin Regular, Human 100 Units/1 Ml) 0 units SUB-Q Q6HR [facility]; Protocol Morphine Sulfate (Morphine 2 Mg/1 Ml Inj) 2 mg IV Q4H PRN PRN Reason: Pain, Moderate (4-6) Multi-Ingred Cream/Lotion/Oil/Oint (Mineral Oil/Petrolatum, White Ophth Oint 3.5 Gm) 1 applic OU Q4HR PRN PRN Reason: Dry Eye(s) Naloxone HCl (Naloxone 0.4 Mg/1 Ml Inj) 0.1 mg IV Q2MIN PRN PRN Reason: Res Rate </= 8 or 02 SAT < 92% Ondansetron HCl (Ondansetron 4 Mg/2 Ml Inj) 4 mg IV Q4H PRN PRN Reason: Nausea And Vomiting Perphenazine (Perphenazine 4 Mg Tab) 8 mg PO QHS [facility] Senna (Sennosides 8.6 Mg Tab) 17.2 mg PO QHS [facility] Sertraline HCl (Sertraline 100 Mg Tab) 200 mg PO QDAY [facility] Sodium Chloride (Sodium Chloride 0.9% 10 Ml Flush Syringe) 10 ml IV BID [facility] Sodium Chloride (Sodium Chloride 0.9% 10 Ml Flush Syringe) 10 ml IV PRN PRN PRN Reason: LINE FLUSH Physical Examination Vital signs: Vital Signs Pulse Resp Pulse Ox 44 L 18 100 03/24/22 05:12 03/24/22 05:12 03/24/22 05:12 Results - Laboratory Findings CBC and BMP: 03/24/22 05:35 03/24/22 05:35 ABG ABG pH 7.380 pH Units (7.350-7.450) 03/24/22 06:03 ABG pCO2 41.8 mm Hg 03/24/22 06:03 ABG pO2 519.2 mm Hg (80.0-90.0) H 03/24/22 06:03 ABG O2 Saturation 99.6 % (95.0-99.0) H 03/24/22 06:03 PT/INR, D-dimer PT 12.7 Sec. (12.2-14.9) 03/24/22 05:35 INR 0.87 (0.87-1.13) 03/24/22 05:35 Abnormal lab findings: Abnormal Labs 03/24/22 03/24/22 03/24/22 05:35 05:35 05:35 WBC 11.2 H Hct 43.7 H Seg Neutrophils % 73.6 H Seg Neutrophils # 8.3 H ABG pO2 ABG O2 Saturation Creatinine 0.5 L Magnesium 2.50 H Total Creatine Kinase 281 H CK-MB (CK-2) Albumin 3.6 L Salicylates 2.3 L Acetaminophen 03/24/22 03/24/22 03/24/22 05:35 05:35 06:03 WBC Hct Seg Neutrophils % Seg Neutrophils # ABG pO2 519.2 H ABG O2 Saturation 99.6 H Creatinine Magnesium Total Creatine Kinase 290 H CK-MB (CK-2) 9.9 H Albumin Salicylates Acetaminophen 5.0 L
[2022-03-24] MEDS: SERTRALINE 100 MG TAB PO SCH (12:23)
[2022-03-24] MEDS: INSULIN REGULAR, HUMAN 100 UNITS/1 ML SUB-Q SCH ×2 (12:23→17:39)
[2022-03-24] MEDS: FAMOTIDINE 20 MG/2 ML INJ IV SCH ×3 (12:24→22:14)
--- NOTE | 2022-03-24 14:58 | Consultation ---
History of Present Illness - Reason for Consult Consult date: 03/24/22 Reason for consult: AMS - History of Present Psychiatric Illness HPI: 41-year-old female with a past medical history of substance abuse with drug overdose presents to the hospital with suspected drug overdose and altered mental status. Patient was picked up by EMS at a male friend's house. He reports that she drank a substance and then passed out and became unresponsive. Patient was reported breathing at a rate of 4 with decreased responsiveness. She received 2 g of Narcan without response with an Accu-Chek of 10. Upon arrival she is satting 99% on room air, with pinpoint pupils, unresponsive to sternal rub, and bradycardia. Decision made to intubate for airway protection due to decreased responsiveness. Patient arrived without IV access. as per medical record review patient was here in December for drug overdose responsive to Narcan and evaluated for face and head injury. The patient was seen today. She is fidgety and moving about as if coming down off a drug. She is focused on . She is delusional and speaking nonsensically at times. The patient tells me that she is legally blind and legally deaf, but she's hearing everything I'm saying without me having to repeat myself. She says she has to be in the ground in 24 hours. I ask her what did that mean, she says "because I'm going to ." I ask her was she suicidal, the patient says "I'm not going to kill myself but anybody can in the emergency room from the things done to me in here." She starts saying again that she has to be buried soon. The patient denies hallucinations. She also denies doing any illicit drugs. She says "I did meth by way of adderall about a month ago." The patient says she takes seroquel and klonopin. PAST PSYCHIATRIC HISTORY: Diagnoses: Schizoaffective Suicide attempts or Self-harm behavior: Denies Prior psychiatric hospitalizations: Yes Substance Abuse history: Methamphetamine Previous psychiatric medications tried: Seroquel, klonopin Outpatient treatment: Yes PAST MEDICAL HISTORY: None reported Family Psychiatric History: None reported SOCIAL HISTORY Marital Status: Single Living Arrangements: with mother and children Employment Status: Disabled Access to guns/weapons: Denies Education: High school History of Abuse: Denies Legal History: Denies REVIEW OF SYSTEMS Constitutional: Negative for weight loss ENT: Negative for stridor Respiratory: Negative for cough or hemoptysis All other systems reviewed and are negative MENTAL STATUS EXAMINATION General Appearance: Dressed appropriately Behavior: fidgety, hyperactive, odd Mood: okay Affect and affective range: congruent with mood Thought Process: illogical Thought content: delusions Speech: Normal Suicidal Ideation: Denies Homicidal Ideation: Denies Hallucinations: Denies Delusions: Yes Insight and Judgment: poor insight and judgment Memory: Limited Attention: Distracted Orientation: Alert, oriented Assessment Schizoaffective disorder Substance Induced Mood Disorder Treatment Plan 1013 Seroquel 100mg po daily Trazodone 50mg po Qhs Agree with home zoloft Sitter: Defer to primary Medical: Per primary Disposition: Recommend acute psychiatric inpatient treatment Will follow. Thank you for this consult. Case staffed with Dr. Alejandro Medications and Allergies Allergies Allergy/AdvReac Type Severity Reaction Status Date / Time No Known Allergies Allergy Verified 05/05/14 03:51 Home Medications Medication Instructions Recorded Confirmed Last Taken Type Perphenazine 8 mg PO HS 09/08/13 07/30/14 05/04/14 21:00 History Sertraline [Zoloft] 200 mg PO QDAY 09/08/13 07/30/14 05/04/14 11:00 History Clindamycin [Cleocin] 300 mg PO Q8H #30 cap 07/30/14 Unknown Rx HYDROcodone/APAP 7.5-325 [[place] 1 each PO Q6HR PRN #14 tablet 07/30/14 Unknown Rx 7.5/325 mg] HYDROcodone/APAP 5-325 [[place] 1 each PO Q6HR PRN #10 tablet 11/23/16 Unknown Rx 5/325] Penicillin Vk [Veetids TAB] 250 mg PO QID #28 tablet 11/23/16 Unknown Rx Ketorolac [Toradol] 10 mg PO Q6H PRN #20 tablet 12/03/18 Unknown Rx Active Meds: Active Medications Acetaminophen (Acetaminophen 325 Mg/10.15 Ml Oral Liqd Unit Dose) 650 mg FEEDTUBE Q6H PRN PRN Reason: Pain MILD(1-3)/Fever >100.5/[facility] Dextrose (Dextrose 50% In Water (25gm) 50 Ml Syringe) 50 ml IV Q30MIN PRN; Protocol PRN Reason: Hypoglycemia Enoxaparin Sodium (Enoxaparin 40 Mg/0.4 Ml Inj) 40 mg SUB-Q QDAY@2200 [facility]; Protocol Famotidine (Famotidine 20 Mg/2 Ml Inj) 20 mg IV BID [facility] Last Admin: 03/24/22 12:24 Dose: Not Given Hydralazine HCl (Hydralazine 20 Mg/1 Ml Inj) 10 mg IV Q4H PRN PRN Reason: Hypertension Hydromorphone HCl (Hydromorphone 0.5 Mg/0.5 Ml Inj) 0.5 mg IV Q3H PRN PRN Reason: Pain , Severe (7-10) Hydrophilic Ointment (Lip Therapy Vaseline) 1 applic TP Q2HR PRN PRN Reason: Dry Lips Insulin Human Regular (Insulin Regular, Human 100 Units/1 Ml) 0 units SUB-Q Q6HR [facility]; Protocol Last Admin: 03/24/22 12:23 Dose: Not Given Morphine Sulfate (Morphine 2 Mg/1 Ml Inj) 2 mg IV Q4H PRN PRN Reason: Pain, Moderate (4-6) Multi-Ingred Cream/Lotion/Oil/Oint (Mineral Oil/Petrolatum, White Ophth Oint 3.5 Gm) 1 applic OU Q4HR PRN PRN Reason: Dry Eye(s) Naloxone HCl (Naloxone 0.4 Mg/1 Ml Inj) 0.1 mg IV Q2MIN PRN PRN Reason: Res Rate </= 8 or 02 SAT < 92% Ondansetron HCl (Ondansetron 4 Mg/2 Ml Inj) 4 mg IV Q4H PRN PRN Reason: Nausea And Vomiting Perphenazine (Perphenazine 4 Mg Tab) 8 mg PO QHS [facility] Senna (Sennosides 8.6 Mg Tab) 17.2 mg PO QHS [facility] Sertraline HCl (Sertraline 100 Mg Tab) 200 mg PO QDAY [facility] Last Admin: 03/24/22 12:23 Dose: Not Given Sodium Chloride (Sodium Chloride 0.9% 10 Ml Flush Syringe) 10 ml IV BID [facility] Last Admin: 03/24/22 12:23 Dose: Not Given Sodium Chloride (Sodium Chloride 0.9% 10 Ml Flush Syringe) 10 ml IV PRN PRN PRN Reason: LINE FLUSH Mental Status Exam - Vital signs Last Vital Signs Temp 98.1 F 03/24/22 14:08 Pulse 91 H 03/24/22 14:08 Resp 18 03/24/22 14:08 BP 120/78 03/24/22 14:08 Pulse Ox 97 03/24/22 14:08 Results Result Diagrams: 03/24/22 05:35 03/24/22 05:35 Abnormal lab results 03/24/22 03/24/22 03/24/22 Range/Units 05:35 05:35 05:35 WBC 11.2 H (4.5-11.0) K/mm3 Hct 43.7 H (30.3-42.9) % Seg Neutrophils % 73.6 H (40.0-70.0) % Seg Neutrophils # 8.3 H (1.8-7.7) K/mm3 ABG pO2 (80.0-90.0) mm Hg ABG O2 Saturation (95.0-99.0) % Creatinine 0.5 L (0.6-1.2) mg/dL POC Glucose (70-105) mg/dL Magnesium 2.50 H (1.7-2.3) mg/dL Total Creatine Kinase 281 H (30-135) units/L CK-MB (CK-2) (0.0-4.0) ng/mL Albumin 3.6 L (3.9-5) g/dL Salicylates 2.3 L (2.8-20.0) mg/dL Acetaminophen (10.0-30.0) ug/mL 03/24/22 03/24/22 03/24/22 Range/Units 05:35 05:35 06:03 WBC (4.5-11.0) K/mm3 Hct (30.3-42.9) % Seg Neutrophils % (40.0-70.0) % Seg Neutrophils # (1.8-7.7) K/mm3 ABG pO2 519.2 H (80.0-90.0) mm Hg ABG O2 Saturation 99.6 H (95.0-99.0) % Creatinine (0.6-1.2) mg/dL POC Glucose (70-105) mg/dL Magnesium (1.7-2.3) mg/dL Total Creatine Kinase 290 H (30-135) units/L CK-MB (CK-2) 9.9 H (0.0-4.0) ng/mL Albumin (3.9-5) g/dL Salicylates (2.8-20.0) mg/dL Acetaminophen 5.0 L (10.0-30.0) ug/mL 03/24/22 Range/Units 12:20 WBC (4.5-11.0) K/mm3 Hct (30.3-42.9) % Seg Neutrophils % (40.0-70.0) % Seg Neutrophils # (1.8-7.7) K/mm3 ABG pO2 (80.0-90.0) mm Hg ABG O2 Saturation (95.0-99.0) % Creatinine (0.6-1.2) mg/dL POC Glucose 106 H (70-105) mg/dL Magnesium (1.7-2.3) mg/dL Total Creatine Kinase (30-135) units/L CK-MB (CK-2) (0.0-4.0) ng/mL Albumin (3.9-5) g/dL Salicylates (2.8-20.0) mg/dL Acetaminophen (10.0-30.0) ug/mL All other labs normal.
[2022-03-24] MEDS: QUEtiapine 100 MG TAB PO SCH ×2 (17:44→22:14)
[2022-03-24] MEDS: ENOXAPARIN 40 MG/0.4 ML INJ SUB-Q SCH ×2 (22:00→22:13)
[2022-03-24] MEDS ORDERED: PERPHENAZINE 8 MG PO SCH (22:00)
[2022-03-24] MEDS: SENNOSIDES 8.6 MG TAB PO SCH (22:14)
[2022-03-24] MEDS: traZODone 50 MG TAB PO SCH (22:14)
[2022-03-25] MEDS: INSULIN REGULAR, HUMAN 100 UNITS/1 ML SUB-Q SCH ×4 (00:39→18:19)
[2022-03-25] MEDS: PERPHENAZINE 4 MG TAB PO SCH ×2 (00:40→21:49)
--- NOTE | 2022-03-25 04:09 | Consultation ---
DATE OF CONSULTATION: 03/24/2022 PULMONARY CRITICAL CARE CONSULTATION NOTE CONSULTING PHYSICIAN: Dr. Hayes. REASON FOR CONSULTATION: Acute respiratory failure, on mechanical ventilatory support, presumed secondary to drug overdose. CHIEF COMPLAINT AND HISTORY OF PRESENT ILLNESS: As follows, the patient is a now 41-year-old obese female with past medical history significant for substance abuse, who presented to the Emergency Room with a suspected drug overdose and altered mental status. Emergency Medical Services picked her up at a friend's house. He had reported to them, she drank a substance and then passed out and became unresponsive. She was breathing at respiratory rate of 4 times per minute with decreased responsiveness. She received Narcan without significant response. In the Emergency Room, evaluation revealed pinpoint pupils. She was unresponsive to sternal rub. She was bradycardic. She was intubated for altered mental status and to protect her airway, and we are asked to assist with management. When I got back to her room, the patient had been extubated. It seems like she became more alert. It is unclear if she passed spontaneous breathing trial; however, she was extubated. She was sitting down in the chair and was alert, oriented, in no respiratory distress. Unfortunately, while I was trying to get further history from her, she ran out of the Emergency Room and the conversation was continued in the parking lot while security came by. I was able to examine her. She denied any chest pain. I do not have any history of nausea, vomiting or overt aspiration. She denies taking any drugs to me and she denied trying to clear herself, that was about as much of the history as I. I could get. She was very anxious and hyperreactive. PAST MEDICAL HISTORY: As far as I can tell, depression. PAST SURGICAL HISTORY: It seems she had surgery for an ectopic in 2010. MEDICATIONS: She was on at the time I stopped by to see according to the medication sedation record included the following: Tylenol 650 mg p.o. q. 6 hours p.r.n. mild pain or fevers, Lovenox 40 mg subcutaneous daily, Pepcid 20 mg IV b.i.d., hydralazine 10 mg IV q. 4 hours p.r.n. hypertension, Dilaudid 0.5 mg IV q. 3 hours p.r.n. severe pain, insulin via sliding scale, morphine sulfate 2 mg IV q. 4 hours p.r.n. moderate pain, Zofran 4 mg IV q. 8 hours p.r.n. nausea and vomiting, naloxone 0.1 mg IV q. 2 minutes p.r.n. respiratory rate less than 8, perphenazine 8 mg p.o. at bedtime scheduled, senna 17.2 mg p.o. at bedtime, Zoloft 200 mg p.o. daily. ALLERGIES: No known drug allergies. DIET: Obese lady, acute weight loss or gain history is unknown. FAMILY AND SOCIAL HISTORY: Apparently lives in the community, has a history of polysubstance abuse. She is described as a current everyday smoker. She also has a history of alcohol use, according to the records. FAMILY HISTORY: Otherwise unobtainable. REVIEW OF SYSTEMS: Unobtainable secondary to the patient's medical and mental condition, but since she has been in the Emergency Room, no gross hematochezia or melena, no gross hematuria, no hematemesis, no hemoptysis, no witnessed seizures. Review of systems otherwise unobtainable or as in the body of history above. PHYSICAL EXAMINATION: VITAL SIGNS: At presentation revealed vital signs shows she was afebrile, temperature 97.8 degrees Fahrenheit, pulse of 44, respiratory rate of 18, blood pressure 101/68, O2 sats 100%, when I saw her, she was on room air. GENERAL: She is a middle-aged obese female, normocephalic, atraumatic, talking to me with slightly pressured speech, but with normal respiratory effort at rest. HEAD, EYES, EARS, NOSE AND THROAT: Anicteric. No conjunctival erythema. Oropharynx was moist. NECK: No gross jugular venous distention, no thyromegaly. Grossly, there were no palpable lymph nodes in the supraclavicular or submandibular lymph node chains. LUNGS: Auscultation of both lung meehan were unremarkable. She had good bilateral air movement. No active wheezing. HEART: Sounds 1 and 2 are heard at the time of my evaluation, regular rate and rhythm without overt rubs or murmurs. ABDOMEN: Soft, full, bowel sounds are positive, nontender, no palpable hepatosplenomegaly. EXTREMITIES: Without overt digital clubbing or cyanosis, no pedal edema. Pedal pulses were 2+ bilaterally. NEUROLOGIC: Pupils are equal, round, about 4 mm, reactive to light. Extraocular muscle movements were intact. She had spontaneous movements to all 4 extremities. SKIN: Normal turgor in the areas I examined without overt cellulitis or rash. Please see the wound care nurses' notes for full description of his skin. PSYCHIATRIC: Mood and affect was somewhat anxious. Her speech was tangential and pressured. LABORATORY DATA: From my review are as follows: Admission white cell count 11,200, hemoglobin 14.0, hematocrit 43.7, platelet count 266. INR 0.87. Arterial blood gas showed a pH of 7.38, pCO2 of 42, pO2 of 519 that was on a 100% on the ventilator. Serum sodium was 139, potassium 3.8, chloride 104, bicarbonate 22, BUN 14, creatinine 0.5. Lactic acid was within normal limits. Glucose within normal limits. Magnesium was high at 2.5. Otherwise, liver function tests were within normal limits. Free T4 and TSH within normal limits. Urine test was negative. Urine drug screen was presumptive negative. Alcohol, Tylenol and aspirin levels were low. No microbiology studies for my review. Chest x-ray was done. I have reviewed the chest x-ray as well as the radiologist's interpretation. The ET tube is in good position. I do not see any acute process on the chest x-ray. No overt cardiomegaly. Good inspiratory effort. A CT scan of the head was done. No acute intracranial abnormalities. CT of the spine showed no acute C-spine findings. There was moderate sclerosis of the C4 vertebral body and no old study to compare with. ASSESSMENT: 1. Acute respiratory failure, presumed secondary to 2. 2. Presumed drug overdose, type of drugs, unknown. 3. Obesity. 4. History of hypertension. 5. History of depression. 6. History of ectopic . 7. History of sciatica. 8. Mild leukocytosis. PLAN: I do feel she needs to be evaluated by the psychiatric especially with her history of depression and the circumstances surrounding her come into the hospital just to ensure this was not homicidal or suicidal attempt. Otherwise, she will need to be watched closely definitely a risk of absconding from the hospital system. Once she is cleared by psychiatry then we can probably relax the supervision otherwise oxygen will be offered as necessary to keep sats greater than or equal to about 90%. She is appropriately on GI and DVT prophylaxis. Chronic disease medications should be administered. She has been downgraded to the regular floor appropriately, may need to be admitted to the psych floor. Flu and pneumonia vaccination will be addressed per protocol. Thank you very much for the consult. We will follow along and make further recommendations as picture progresses/becomes clearer. TID: [id number] RECEIPT: [id number] JC/HALEY
[2022-03-25] MEDS: SERTRALINE 100 MG TAB PO SCH (09:21)
[2022-03-25] MEDS: QUEtiapine 100 MG TAB PO SCH ×2 (09:21→21:48)
[2022-03-25] MEDS: FAMOTIDINE 20 MG TAB PO SCH ×2 (09:21→21:48)
[2022-03-25] MEDS ORDERED: SERTRALINE 100 MG TAB FEEDTUBE SCH (10:00)
[2022-03-25 10:23] LABS: Basophils # (Auto) 0.1 K/mm3 (0.0-0.1); Basophils % (Auto) 1.1 % (0.0-1.8); Eosinophils # (Auto) 0.1 K/mm3 (0.0-0.4); Eosinophils % (Auto) 1.1 % (0.0-4.3); Hemoglobin 12.6 gm/dl (10.1-14.3); Lymphocytes # (Auto) 1.3 K/mm3 (1.2-5.4); Mean Corpuscular HGB Conc 33 % (30-34); Mean Corpuscular Volume 89 fl (79-97); Monocytes # (Auto) 0.5 K/mm3 (0.0-0.8); Monocytes % (Auto) 8.9 % (0.0-7.3); Platelet Count 197 K/mm3 (140-440); Red Blood Count 4.26 M/mm3 (3.65-5.03); Red Cell Distribution Width 14.8 % (13.2-15.2)
[2022-03-25 10:41] LABS: BUN/Creatinine Ratio 10; Blood Urea Nitrogen 5 mg/dL (7-17); Calcium 8.9 mg/dL (8.4-10.2); Hemolysis Index 8
--- NOTE | 2022-03-25 12:06 | Progress Note ---
Assessment and Plan Assessment and plan: This is a 41-year-old female with active polysubstance abuse (EtOH, nicotine, methamphetamine, "ether"), congenital heart disease, acute kidney injury requiring HD in the past, IBS and schizoaffective disorder who presented to emergency department on 03/24 with suspected drug overdose and altered mental status via EMS. Per EMS patient was picked up from male friend's house who reported that she drink substance and passed out and became unresponsive. Upon EMS arrival patient respiratory rate noted at 4 with decrease expansiveness and she was given Narcan without response and Accu-Chek report of blood sugar of 10. Upon arrival to the emergency department her SPO2 was 98% on room air with pinpoint pupils, unresponsive to sternal rub and had bradycardia and the decision was made to intubate the patient for airway protection due to deep responsiveness. Patient had leukocytosis, hypermagnesemia and slightly elevated creatinine kinase on lab work. Patient was admitted to the hospitalist service with consults to CCM and acute hypoxic respiratory failure with suspected drug overdose. At the time of my exam patient was sitting up towards the end of the bed and verified her name is Chiqui Montoya by head nod. Patient was on a propofol gtt (unsure if it was infusing) and she had four-point restraints in place. Patient able to follow commands coupled with minimal vent settings the decision was made to extubate after verification with Dr. Shelton. Patient was extubated at bedside by RT Nitish. After extubation interview was conducted with patient denied fevers, chills, hematemesis, hemoptysis, recent weight loss, cough, fatigue, fevers, chest pain or shortness of breath. Patient denies any recent sick contacts or known exposure to COVID-19. h/o polysubstance abuse -CT head with no acute findings -CT Cspine without acute findings -Restart home antipsychotic medication -UDS negative, plasma/serum alcohol <0.01 Substance Induced Mood Disorder -Patient denies SI but family states she has been taking questionable actions and speaks of suicidal ideation -Psych consulted, appreciate recommendations -1013 hold per psych schizoaffective disorder Acute hypoxic respiratory failure, current nicotine abuse -Presented with decreased responsiveness and respiratory rate -Intubated in the emergency department on 03/24 with 7.50 ETT at 20 at the lips and extubated 03/24 -weaned to NC -Smoking cessation counseling provided GModerate protein calorie malnutrition -PPI -NTR consulted for tube feedings -RN to perform swallow eval -if fails, replace DHT -BR: Senna Leukocytosis -Trend CBC -Likely stress-induced -Lovenox subq -Monitor for signs of bleeding -SCDs to BLE while in bed 03/25/2022. Psychiatry recommends psychiatric inpatient treatment. Continue withdrawal protocols. Continue 1013. History Interval history: No new issues overnight Hospitalist Physical - Constitutional Vitals: Temp Pulse Resp BP Pulse Ox 98.1 F 91 H 20 120/78 96 03/24/22 14:08 03/24/22 14:08 03/24/22 20:53 03/24/22 14:08 03/25/22 10:12 General appearance: Present: no acute distress - EENT Eyes: Present: PERRL, EOM intact ENT: hearing intact, clear oral mucosa, dentition normal - Neck Neck: Present: supple, normal ROM - Respiratory Respiratory effort: normal Respiratory: bilateral: CTA - Cardiovascular Rhythm: regular Heart Sounds: Present: S1 & S2. Absent: gallop, rub - Extremities Extremities: no ischemia, No edema, Full ROM - Abdominal General gastrointestinal: soft, non-tender, non-distended, normal bowel sounds - Integumentary Integumentary: Present: clear, warm, dry - Neurologic Neurologic: CNII-XII intact, moves all extremities HEART Score - HEART Score EKG: Normal Age: < 45 Risk factors: 1-2 risk factors Troponin: Troponin T < 0.010 ng/mL (0.00-0.029) 03/24/22 05:35 Results - Labs CBC & Chem 7: 03/25/22 10:01 03/25/22 10:01 Labs: Laboratory Last Values WBC 5.3 K/mm3 (4.5-11.0) 03/25/22 10:01 RBC 4.26 M/mm3 (3.65-5.03) 03/25/22 10:01 Hgb 12.6 gm/dl (10.1-14.3) 03/25/22 10:01 Hct 38.0 % (30.3-42.9) 03/25/22 10:01 MCV 89 fl (79-97) 03/25/22 10:01 MCH 30 pg (28-32) 03/25/22 10:01 MCHC 33 % (30-34) 03/25/22 10:01 RDW 14.8 % (13.2-15.2) 03/25/22 10:01 Plt Count 197 K/mm3 (140-440) 03/25/22 10:01 Lymph % (Auto) 25.0 % (13.4-35.0) 03/25/22 10:01 Hubbard % (Auto) 8.9 % (0.0-7.3) H 03/25/22 10:01 Eos % (Auto) 1.1 % (0.0-4.3) 03/25/22 10:01 Baso % (Auto) 1.1 % (0.0-1.8) 03/25/22 10:01 Lymph # (Auto) 1.3 K/mm3 (1.2-5.4) 03/25/22 10:01 Hubbard # (Auto) 0.5 K/mm3 (0.0-0.8) 03/25/22 10:01 Eos # (Auto) 0.1 K/mm3 (0.0-0.4) 03/25/22 10:01 Baso # (Auto) 0.1 K/mm3 (0.0-0.1) 03/25/22 10:01 Seg Neutrophils % 63.9 % (40.0-70.0) 03/25/22 10:01 Seg Neutrophils # 3.4 K/mm3 (1.8-7.7) 03/25/22 10:01 PT 12.7 Sec. (12.2-14.9) 03/24/22 05:35 INR 0.87 (0.87-1.13) 03/24/22 05:35 APTT 28.4 Sec. (24.2-36.6) 03/24/22 05:35 ABG pH 7.380 pH Units (7.350-7.450) 03/24/22 06:03 ABG pCO2 41.8 mm Hg 03/24/22 06:03 ABG pO2 519.2 mm Hg (80.0-90.0) H 03/24/22 06:03 ABG HCO3 24.1 mmol/L (20.0-26.0) 03/24/22 06:03 ABG O2 Saturation 99.6 % (95.0-99.0) H 03/24/22 06:03 ABG O2 Content 18.8 (0.0-44) 03/24/22 06:03 ABG Base Excess -1.0 mmol/L (-2.0-3.0) 03/24/22 06:03 ABG Hemoglobin 12.8 gm/dl (12.0-16.0) 03/24/22 06:03 ABG Carboxyhemoglobin 2.6 % (0.0-5.0) 03/24/22 06:03 ABG Methemoglobin 0.5 % (0.0-1.5) 03/24/22 06:03 Oxyhemoglobin 96.5 % (95.0-99.0) 03/24/22 06:03 FiO2 100 % 03/24/22 06:03 Sodium 140 mmol/L (137-145) 03/25/22 10:01 Potassium 3.4 mmol/L (3.6-5.0) L 03/25/22 10:01 Chloride 102.8 mmol/L (98-107) 03/25/22 10:01 Carbon Dioxide 28 mmol/L (22-30) 03/25/22 10:01 Anion Gap 13 mmol/L 03/25/22 10:01 BUN 5 mg/dL (7-17) L 03/25/22 10:01 Creatinine 0.5 mg/dL (0.6-1.2) L 03/25/22 10:01 Estimated GFR > 60 ml/min 03/25/22 10:01 BUN/Creatinine Ratio 10 % 03/25/22 10:01 Glucose 96 mg/dL (65-100) 03/25/22 10:01 POC Glucose 79 mg/dL (70-105) 03/25/22 07:47 Lactic Acid 1.90 mmol/L (0.7-2.0) 03/24/22 05:35 Calcium 8.9 mg/dL (8.4-10.2) 03/25/22 10:01 Magnesium 2.50 mg/dL (1.7-2.3) H 03/24/22 05:35 Total Bilirubin 0.20 mg/dL (0.1-1.2) 03/24/22 05:35 AST 23 units/L (5-40) 03/24/22 05:35 ALT 33 units/L (7-56) 03/24/22 05:35 Alkaline Phosphatase 115 units/L (35-129) 03/24/22 05:35 Ammonia 54.0 umol/L (25-60) 03/24/22 05:35 Total Creatine Kinase 281 units/L (30-135) H 03/24/22 05:35 Total Creatine Kinase 290 units/L (30-135) H 03/24/22 05:35 CK-MB (CK-2) 9.9 ng/mL (0.0-4.0) H 03/24/22 05:35 CK-MB (CK-2) Rel Index 3.4 (0-4) 03/24/22 05:35 Troponin T < 0.010 ng/mL (0.00-0.029) 03/24/22 05:35 Total Protein 7.2 g/dL (6.3-8.2) 03/24/22 05:35 Albumin 3.6 g/dL (3.9-5) L 03/24/22 05:35 Albumin/Globulin Ratio 1.0 % 03/24/22 05:35 TSH 0.476 mlU/mL (0.270-4.200) 03/24/22 05:35 Free T4 1.17 ng/dL (0.76-1.46) 03/24/22 05:35 HCG, Qual Negative (Negative) 03/24/22 05:35 Salicylates 2.3 mg/dL (2.8-20.0) L 03/24/22 05:35 Urine Opiates Screen Negative 03/24/22 05:22 Urine Methadone Screen Negative 03/24/22 05:22 Acetaminophen 5.0 ug/mL (10.0-30.0) L 03/24/22 05:35 Ur Barbiturates Screen Negative 03/24/22 05:22 Ur Phencyclidine Scrn Negative 03/24/22 05:22 Ur Amphetamines Screen Negative 03/24/22 05:22 U Benzodiazepines Scrn Negative 03/24/22 05:22 Urine Cocaine Screen Negative 03/24/22 05:22 U Marijuana (THC) Screen Negative 03/24/22 05:22 Drugs of Abuse Note Disclamer 03/24/22 05:22 Plasma/Serum Alcohol < 0.01 % (0-0.07) 03/24/22 05:35 Han/IV: Voiding Method Toilet Active Medications - Current Medications Current Medications: Generic Name Dose Route Start Last Admin Trade Name Freq PRN Reason Stop Dose Admin Acetaminophen 650 mg 03/24/22 08:00 Acetaminophen 325 Mg/10.15 Ml Oral Liqd Unit Dose FEEDTUBE Q6H PRN Pain MILD(1-3)/Fever >100.5/LAWSON Dextrose 50 ml 03/24/22 08:00 Dextrose 50% In Water (25gm) 50 Ml Syringe IV Q30MIN PRN Hypoglycemia Protocol Enoxaparin Sodium 40 mg 03/24/22 22:00 03/24/22 22:00 Enoxaparin 40 Mg/0.4 Ml Inj SUB-Q Not Given QDAY@2200 [facility] Protocol Famotidine 20 mg 03/25/22 10:00 03/25/22 09:21 Famotidine 20 Mg Tab PO 20 mg BID SANTOSH Administration Hydralazine HCl 10 mg 03/24/22 09:00 Hydralazine 20 Mg/1 Ml Inj IV Q4H PRN Hypertension Hydromorphone HCl 0.5 mg 03/24/22 08:00 Hydromorphone 0.5 Mg/0.5 Ml Inj IV Q3H PRN Pain , Severe (7-10) Hydrophilic Ointment 1 applic 03/24/22 05:08 Lip Therapy Vaseline TP Q2HR PRN Dry Lips Insulin Human Regular 0 units 03/24/22 12:00 03/25/22 06:36 Insulin Regular, Human 100 Units/1 Ml SUB-Q Not Given Q6HR [facility] Protocol Morphine Sulfate 2 mg 03/24/22 08:00 Morphine 2 Mg/1 Ml Inj IV Q4H PRN Pain, Moderate (4-6) Multi-Ingred Cream/Lotion/Oil/Oint 1 applic 03/24/22 05:08 Mineral Oil/Petrolatum, White Ophth Oint 3.5 Gm OU Q4HR PRN Dry Eye(s) Naloxone HCl 0.1 mg 03/24/22 08:00 Naloxone 0.4 Mg/1 Ml Inj IV Q2MIN PRN Res Rate </= 8 or 02 SAT < 92% Ondansetron HCl 4 mg 03/24/22 08:00 Ondansetron 4 Mg/2 Ml Inj IV Q4H PRN Nausea And Vomiting Perphenazine 8 mg 03/24/22 22:00 03/25/22 00:40 Perphenazine 4 Mg Tab PO Not Given QHS SANTOSH Quetiapine Fumarate 100 mg 03/24/22 16:00 03/25/22 09:21 Quetiapine 100 Mg Tab PO 100 mg BID SANTOSH Administration Senna 17.2 mg 03/24/22 22:00 03/24/22 22:14 Sennosides 8.6 Mg Tab PO 17.2 mg QHS SANTOSH Administration Sertraline HCl 200 mg 03/24/22 10:00 03/25/22 09:21 Sertraline 100 Mg Tab PO 200 mg QDAY SANTOSH Administration Sodium Chloride 10 ml 03/24/22 10:00 03/25/22 09:22 Sodium Chloride 0.9% 10 Ml Flush Syringe IV 10 ml BID SANTOSH Administration Sodium Chloride 10 ml 03/24/22 08:00 Sodium Chloride 0.9% 10 Ml Flush Syringe IV PRN PRN LINE FLUSH Trazodone HCl 50 mg 03/24/22 22:00 03/24/22 22:14 Trazodone 50 Mg Tab PO 50 mg QHS SANTOSH Administration Nutrition/Malnutrition Assess - Dietary Evaluation Nutrition/Malnutrition Findings: Nutrition Notes Start: 03/24/22 15:11 Freq: Status: Active Protocol: Document 03/24/22 15:11 PETEY (Rec: 03/24/22 15:17 PETEY [email or web address]) Nutrition Notes Need for Assessment generated from: MD Order Initial or Follow up Assessment Other Pertinent Diagnosis AMS, Polysubstance dependence, Schizoaffective D/O Current Diet Regular Labs/Tests Reviewed Pertinent Medications Reviewed Height 5 ft 6 in Weight 99.79 kg [place] Body Weight (kg) 59.09 BMI 35.5 Weight Status Obese Subjective/Other Information RD consulted for TF and to evaluate nutritional intake ( pt was in ED at time of consult, but has since been transferred to medical floor and diet advanced). Observed pt who is rambling in conversation. Burn Absent Trauma Absent Minimum of two criteria No #1 Nutrition Diagnosis Predicted suboptimal energy intake Etiology AMS As Evidenced by Signs and Symptoms pt delusional at this time Is patient on ventilator? No Is Patient Ambulatory and/or Out of Bed Yes REE-([facility]-ambulatory/OOB) [ 2847.417 [id number]] Kcal/Kg value to use for calculation 17 Approximate Energy Requirements Using 1696 kcal/Kg Calculation Used for Recommendations Kcal/kg Additional Notes Pro needs 0.8-1g/kg adjBW: 64- 79g/day Fluid needs 1ml/kcal Nutrition Intervention Change Diet Order: Continue current diet order Goal #1 PO intake to meet at least 75% energy and pro needs Anticipated Discharge Needs: None identified at this time Follow-Up By: 03/28/22 Additional Comments F/U: intakes
--- NOTE | 2022-03-25 14:25 | Progress Note ---
Subjective - Reason for Consult Consult date: 03/25/22 Reason for consult: AMS - Chief Complaint Chief complaint: The patient was seen today. Her thoughts are still disorganized. I'm having to ask the same questions repeatedly. She is confused. She mumbles beneath her breath words I can't discern. I ask the patient was she depressed or having any thoughts of self harm, she then just stares at the t.v and doesn't talk anymore. REVIEW OF SYSTEMS Constitutional: Negative for weight loss ENT: Negative for stridor Respiratory: Negative for cough or hemoptysis All other systems reviewed and are negative MENTAL STATUS EXAMINATION General Appearance: Dressed appropriately Behavior: uncooperative Mood: Affect and affective range: restricted Thought Process: illogical, disorganized Thought content: delusions Speech: garbled Suicidal Ideation: reported by parents Homicidal Ideation: Denies Hallucinations: Delusions: Yes Insight and Judgment: poor insight and judgment Memory: Attention: Distracted Orientation: Confused Assessment Schizoaffective disorder Substance Induced Mood Disorder Treatment Plan [address] 125mg po BID Seroquel 100mg po daily Trazodone 50mg po Qhs Agree with home zoloft Sitter: Defer to primary Medical: Per primary Disposition: Recommend acute psychiatric inpatient treatment Will follow. Thank you for this consult. Case staffed with Dr. Alejandro Mental Status Exam - Vital signs Last Vital Signs Temp 98.1 F 03/24/22 14:08 Pulse 91 H 03/24/22 14:08 Resp 20 03/24/22 20:53 BP 120/78 03/24/22 14:08 Pulse Ox 96 03/25/22 10:12
[2022-03-25] MEDS ORDERED: LORazepam 2 MG/ML VIAL IM PRN (16:45)
[2022-03-25] MEDS ORDERED: HALOPERIDOL LACTATE 5 MG/1 ML INJ IM PRN (16:46)
--- NOTE | 2022-03-25 17:22 | Progress Note ---
Assessment and Plan Acute hypoxic respiratory failure, current nicotine abuse h/o polysubstance abuse -CT head with no acute findings -CT Cspine without acute findings Substance Induced Mood Disorder Schizoaffective disorder Leukocytosis Remains stable post extubation -Trend WCC and fever curve. Monitor off antibiotics -CXR as clinically indicated -Supplemental oxygen as clinically indicated, keep sPO2 89-92% - Currently being treated for acute psychosis, Psych recommends inpatient psych for stabilization, remains on 1013 Substance abuse counselling -Nicotine withdrawal precautions, smokiing cessation counselling -Replete electrolytes, keep potassium >3.5 -Supportive care -VTE prophylaxis- patient is ambulatory, low risk profile -Continue all chronic home medications and supportive care - Subjective Date of service: 03/25/22 Principal diagnosis: Acute resp failure on MVS s/p extubation, Drug OD Interval history: SUMMARY PER MEDICAL RECORDS This is a 41-year-old female with active polysubstance abuse (EtOH, nicotine, methamphetamine, "ether"), congenital heart disease, acute kidney injury requiring HD in the past, IBS and schizoaffective disorder who presented to emergency department on 03/24 with suspected drug overdose and altered mental status via EMS. Per EMS patient was picked up from male friend's house who reported that she drink substance and passed out and became unresponsive. Upon EMS arrival patient respiratory rate noted at 4 with decrease expansiveness and she was given Narcan without response and Accu-Chek report of blood sugar of 10. Upon arrival to the emergency department her SPO2 was 98% on room air with pinpoint pupils, unresponsive to sternal rub and had bradycardia and the decis ion was made to intubate the patient for airway protection due to deep responsiveness. Patient had leukocytosis, hypermagnesemia and slightly elevated creatinine kinase on lab work. Patient was admitted to the hospitalist service with consults to [facility] and acute hypoxic respiratory failure with suspected drug overdose. At the time of my exam patient was sitting up towards the end of the bed and verified her name is Chiqui Montoya by head nod. Patient was on a propofol gtt (unsure if it was infusing) and she had four-point restraints in place. Patient able to follow commands coupled with minimal vent settings the decision was made to extubate after verification with Dr. Shelton. Patient was extubated at bedside by RT Nitish. After extubation interview was conducted with patient denied fevers, chills, hematemesis, hemoptysis, recent weight loss, cough, fatigue, fevers, chest pain or shortness of breath. Patient denies any recent sick contacts or known exposure to COVID-19. Patient seen and examined. Vitals, labs, medications, chart and imaging reviewed. Discussed with RN who was at the bedside at the time of my evaluation Disorganized thoughts, pacing up and down in the room. Mumbling to herself, with tangential speech. She is on 1013 and just recieved a dose of Haloperidol per RN. She has pulled out all her peripheral IVs Objective Vital Signs - 12hr 03/25/22 10:12 O2 Sat by Pulse 96 Oximetry Constitutional: no acute distress, other (pacing up and down in the room) Eyes: non-icteric ENT: oropharynx moist Neck: supple, no lymphadenopathy Effort: normal Ascultation: Bilateral: clear Cardiovascular: regular rate and rhythm Gastrointestinal: normoactive bowel sounds, soft, non-tender, non-distended Integumentary: normal Extremities: no cyanosis, no edema Neurologic: non-focal exam Psychiatric: other (Disorganized thoughts, tangential speech, intermittently pacing in the room) CBC and BMP: 03/25/22 10:01 03/25/22 10:01 ABG, PT/INR, D-dimer: ABG ABG pH 7.380 pH Units (7.350-7.450) 03/24/22 06:03 ABG pCO2 41.8 mm Hg 03/24/22 06:03 ABG pO2 519.2 mm Hg (80.0-90.0) H 03/24/22 06:03 ABG O2 Saturation 99.6 % (95.0-99.0) H 03/24/22 06:03 PT/INR, D-dimer PT 12.7 Sec. (12.2-14.9) 03/24/22 05:35 INR 0.87 (0.87-1.13) 03/24/22 05:35 Abnormal lab findings: Abnormal Labs 03/24/22 03/24/22 03/24/22 05:35 05:35 05:35 WBC 11.2 H Hct 43.7 H Cherry % (Auto) Seg Neutrophils % 73.6 H Seg Neutrophils # 8.3 H ABG pO2 ABG O2 Saturation Potassium BUN Creatinine 0.5 L POC Glucose Magnesium 2.50 H Total Creatine Kinase 281 H CK-MB (CK-2) Albumin 3.6 L Salicylates 2.3 L Acetaminophen 03/24/22 03/24/22 03/24/22 05:35 05:35 06:03 WBC Hct Cherry % (Auto) Seg Neutrophils % Seg Neutrophils # ABG pO2 519.2 H ABG O2 Saturation 99.6 H Potassium BUN Creatinine POC Glucose Magnesium Total Creatine Kinase 290 H CK-MB (CK-2) 9.9 H Albumin Salicylates Acetaminophen 5.0 L 03/24/22 03/25/22 03/25/22 12:20 10:01 10:01 WBC Hct Cherry % (Auto) 8.9 H Seg Neutrophils % Seg Neutrophils # ABG pO2 ABG O2 Saturation Potassium 3.4 L BUN 5 L Creatinine 0.5 L POC Glucose 106 H Magnesium Total Creatine Kinase CK-MB (CK-2) Albumin Salicylates Acetaminophen Allied health notes reviewed: nursing
[2022-03-25] MEDS: DIVALPROEX DR 125 MG TAB PO SCH (18:19)
[2022-03-25] MEDS: traZODone 50 MG TAB PO SCH (21:47)
[2022-03-25] MEDS: ENOXAPARIN 40 MG/0.4 ML INJ SUB-Q SCH (21:47)
[2022-03-25] MEDS: SENNOSIDES 8.6 MG TAB PO SCH (21:48)
[2022-03-26] MEDS: DIVALPROEX DR 125 MG TAB PO SCH ×2 (01:18→09:59)
[2022-03-26] MEDS: INSULIN REGULAR, HUMAN 100 UNITS/1 ML SUB-Q SCH ×5 (01:18→22:47)
[2022-03-26] MEDS: QUEtiapine 100 MG TAB PO SCH ×2 (09:59→22:28)
[2022-03-26] MEDS: FAMOTIDINE 20 MG TAB PO SCH ×2 (09:59→22:28)
[2022-03-26] MEDS: SERTRALINE 100 MG TAB PO SCH (09:59)
--- NOTE | 2022-03-26 11:59 | Electrocardiograph Report ---
[facility] Test Date: 2022-03-24 Test Time: 05:15:42 Pat Name: KRISTI HAYES Department: Room: A380 Gender: F Vp Revenue Cycle: RKOKU : 1980 Requested By: AMANDA ESCALONA Order Number: [id number] Reading MD: Tru Cruz Measurements Intervals [place] Rate: 39 P: -18 ND: 116 QRS: 61 QRSD: 93 T: 48 QT: 537 QTc: 432 Interpretive Statements Sinus bradycardia No previous ECG available for comparison Electronically Signed On 03-26-2022 11:59:15 EDT by Tru Cruz
--- NOTE | 2022-03-26 13:39 | Progress Note ---
Assessment and Plan Assessment and plan: This is a 41-year-old female with active polysubstance abuse (EtOH, nicotine, methamphetamine, "ether"), congenital heart disease, acute kidney injury requiring HD in the past, IBS and schizoaffective disorder who presented to emergency department on 03/24 with suspected drug overdose and altered mental status via EMS. Per EMS patient was picked up from male friend's house who reported that she drink substance and passed out and became unresponsive. Upon EMS arrival patient respiratory rate noted at 4 with decrease expansiveness and she was given Narcan without response and Accu-Chek report of blood sugar of 10. Upon arrival to the emergency department her SPO2 was 98% on room air with pinpoint pupils, unresponsive to sternal rub and had bradycardia and the decision was made to intubate the patient for airway protection due to deep responsiveness. Patient had leukocytosis, hypermagnesemia and slightly elevated creatinine kinase on lab work. Patient was admitted to the hospitalist service with consults to CCM and acute hypoxic respiratory failure with suspected drug overdose. At the time of my exam patient was sitting up towards the end of the bed and verified her name is Chiqui Montoya by head nod. Patient was on a propofol gtt (unsure if it was infusing) and she had four-point restraints in place. Patient able to follow commands coupled with minimal vent settings the decision was made to extubate after verification with Dr. Shelton. Patient was extubated at bedside by RT Nitish. After extubation interview was conducted with patient denied fevers, chills, hematemesis, hemoptysis, recent weight loss, cough, fatigue, fevers, chest pain or shortness of breath. Patient denies any recent sick contacts or known exposure to COVID-19. h/o polysubstance abuse -CT head with no acute findings -CT Cspine without acute findings -Restart home antipsychotic medication -UDS negative, plasma/serum alcohol <0.01 Substance Induced Mood Disorder -Patient denies SI but family states she has been taking questionable actions and speaks of suicidal ideation -Psych consulted, appreciate recommendations -1013 hold per psych schizoaffective disorder Acute hypoxic respiratory failure, current nicotine abuse -Presented with decreased responsiveness and respiratory rate -Intubated in the emergency department on 03/24 with 7.50 ETT at 20 at the lips and extubated 03/24 -weaned to NC -Smoking cessation counseling provided GModerate protein calorie malnutrition -PPI -NTR consulted for tube feedings -RN to perform swallow eval -if fails, replace DHT -BR: Senna Leukocytosis -Trend CBC -Likely stress-induced -Lovenox subq -Monitor for signs of bleeding -SCDs to BLE while in bed 03/25/2022. Psychiatry recommends psychiatric inpatient treatment. Continue withdrawal protocols. Continue 1013. 03/26/2022. Continue 1013 and psychiatric treatment. Withdrawal protocols History Interval history: No new issues overnight Hospitalist Physical - Constitutional Vitals: Temp Pulse Resp BP Pulse Ox 98.4 F 62 18 117/72 98 03/26/22 05:58 03/26/22 05:58 03/26/22 05:58 03/26/22 05:58 03/26/22 11:51 General appearance: Present: no acute distress - EENT Eyes: Present: PERRL, EOM intact ENT: hearing intact, clear oral mucosa, dentition normal - Neck Neck: Present: supple, normal ROM - Respiratory Respiratory effort: normal Respiratory: bilateral: CTA - Cardiovascular Rhythm: regular Heart Sounds: Present: S1 & S2. Absent: gallop, rub - Extremities Extremities: no ischemia, No edema, Full ROM - Abdominal General gastrointestinal: soft, non-tender, non-distended, normal bowel sounds - Integumentary Integumentary: Present: clear, warm, dry - Neurologic Neurologic: CNII-XII intact, moves all extremities HEART Score - HEART Score EKG: Normal Age: < 45 Risk factors: 1-2 risk factors Troponin: Troponin T < 0.010 ng/mL (0.00-0.029) 03/24/22 05:35 Results - Labs CBC & Chem 7: 03/25/22 10:01 03/25/22 10:01 Labs: Laboratory Last Values WBC 5.3 K/mm3 (4.5-11.0) 03/25/22 10:01 RBC 4.26 M/mm3 (3.65-5.03) 03/25/22 10:01 Hgb 12.6 gm/dl (10.1-14.3) 03/25/22 10:01 Hct 38.0 % (30.3-42.9) 03/25/22 10:01 MCV 89 fl (79-97) 03/25/22 10:01 MCH 30 pg (28-32) 03/25/22 10:01 MCHC 33 % (30-34) 03/25/22 10:01 RDW 14.8 % (13.2-15.2) 03/25/22 10:01 Plt Count 197 K/mm3 (140-440) 03/25/22 10:01 Lymph % (Auto) 25.0 % (13.4-35.0) 03/25/22 10:01 [place] % (Auto) 8.9 % (0.0-7.3) H 03/25/22 10:01 Eos % (Auto) 1.1 % (0.0-4.3) 03/25/22 10:01 Baso % (Auto) 1.1 % (0.0-1.8) 03/25/22 10:01 Lymph # (Auto) 1.3 K/mm3 (1.2-5.4) 03/25/22 10:01 [place]ila # (Auto) 0.5 K/mm3 (0.0-0.8) 03/25/22 10:01 Eos # (Auto) 0.1 K/mm3 (0.0-0.4) 03/25/22 10:01 Baso # (Auto) 0.1 K/mm3 (0.0-0.1) 03/25/22 10:01 Seg Neutrophils % 63.9 % (40.0-70.0) 03/25/22 10:01 Seg Neutrophils # 3.4 K/mm3 (1.8-7.7) 03/25/22 10:01 PT 12.7 Sec. (12.2-14.9) 03/24/22 05:35 INR 0.87 (0.87-1.13) 03/24/22 05:35 APTT 28.4 Sec. (24.2-36.6) 03/24/22 05:35 ABG pH 7.380 pH Units (7.350-7.450) 03/24/22 06:03 ABG pCO2 41.8 mm Hg 03/24/22 06:03 ABG pO2 519.2 mm Hg (80.0-90.0) H 03/24/22 06:03 ABG HCO3 24.1 mmol/L (20.0-26.0) 03/24/22 06:03 ABG O2 Saturation 99.6 % (95.0-99.0) H 03/24/22 06:03 ABG O2 Content 18.8 (0.0-44) 03/24/22 06:03 ABG Base Excess -1.0 mmol/L (-2.0-3.0) 03/24/22 06:03 ABG Hemoglobin 12.8 gm/dl (12.0-16.0) 03/24/22 06:03 ABG Carboxyhemoglobin 2.6 % (0.0-5.0) 03/24/22 06:03 ABG Methemoglobin 0.5 % (0.0-1.5) 03/24/22 06:03 Oxyhemoglobin 96.5 % (95.0-99.0) 03/24/22 06:03 FiO2 100 % 03/24/22 06:03 Sodium 140 mmol/L (137-145) 03/25/22 10:01 Potassium 3.4 mmol/L (3.6-5.0) L 03/25/22 10:01 Chloride 102.8 mmol/L (98-107) 03/25/22 10:01 Carbon Dioxide 28 mmol/L (22-30) 03/25/22 10:01 Anion Gap 13 mmol/L 03/25/22 10:01 BUN 5 mg/dL (7-17) L 03/25/22 10:01 Creatinine 0.5 mg/dL (0.6-1.2) L 03/25/22 10:01 Estimated GFR > 60 ml/min 03/25/22 10:01 BUN/Creatinine Ratio 10 % 03/25/22 10:01 Glucose 96 mg/dL (65-100) 03/25/22 10:01 POC Glucose 97 mg/dL (70-105) 03/26/22 11:50 Lactic Acid 1.90 mmol/L (0.7-2.0) 03/24/22 05:35 Calcium 8.9 mg/dL (8.4-10.2) 03/25/22 10:01 Magnesium 2.50 mg/dL (1.7-2.3) H 03/24/22 05:35 Total Bilirubin 0.20 mg/dL (0.1-1.2) 03/24/22 05:35 AST 23 units/L (5-40) 03/24/22 05:35 ALT 33 units/L (7-56) 03/24/22 05:35 Alkaline Phosphatase 115 units/L (35-129) 03/24/22 05:35 Ammonia 54.0 umol/L (25-60) 03/24/22 05:35 Total Creatine Kinase 281 units/L (30-135) H 03/24/22 05:35 Total Creatine Kinase 290 units/L (30-135) H 03/24/22 05:35 CK-MB (CK-2) 9.9 ng/mL (0.0-4.0) H 03/24/22 05:35 CK-MB (CK-2) Rel Index 3.4 (0-4) 03/24/22 05:35 Troponin T < 0.010 ng/mL (0.00-0.029) 03/24/22 05:35 Total Protein 7.2 g/dL (6.3-8.2) 03/24/22 05:35 Albumin 3.6 g/dL (3.9-5) L 03/24/22 05:35 Albumin/Globulin Ratio 1.0 % 03/24/22 05:35 TSH 0.476 mlU/mL (0.270-4.200) 03/24/22 05:35 Free T4 1.17 ng/dL (0.76-1.46) 03/24/22 05:35 HCG, Qual Negative (Negative) 03/24/22 05:35 Salicylates 2.3 mg/dL (2.8-20.0) L 03/24/22 05:35 Urine Opiates Screen Negative 03/24/22 05:22 Urine Methadone Screen Negative 03/24/22 05:22 Acetaminophen 5.0 ug/mL (10.0-30.0) L 03/24/22 05:35 Ur Barbiturates Screen Negative 03/24/22 05:22 Ur Phencyclidine Scrn Negative 03/24/22 05:22 Ur Amphetamines Screen Negative 03/24/22 05:22 U Benzodiazepines Scrn Negative 03/24/22 05:22 Urine Cocaine Screen Negative 03/24/22 05:22 U Marijuana (THC) Screen Negative 03/24/22 05:22 Drugs of Abuse Note Disclamer 03/24/22 05:22 Plasma/Serum Alcohol < 0.01 % (0-0.07) 03/24/22 05:35 Han/IV: Voiding Method Toilet Active Medications - Current Medications Current Medications: Generic Name Dose Route Start Last Admin Trade Name Freq PRN Reason Stop Dose Admin Acetaminophen 650 mg 03/24/22 08:00 Acetaminophen 325 Mg/10.15 Ml Oral Liqd Unit Dose FEEDTUBE Q6H PRN Pain MILD(1-3)/Fever >100.5/LAWSON Dextrose 50 ml 03/24/22 08:00 Dextrose 50% In Water (25gm) 50 Ml Syringe IV Q30MIN PRN Hypoglycemia Protocol Divalproex Sodium 125 mg 03/25/22 15:00 03/26/22 09:[address] 125 Mg Tab PO 125 mg BID SANTOSH Administration Enoxaparin Sodium 40 mg 03/24/22 22:00 03/25/22 21:47 Enoxaparin 40 Mg/0.4 Ml Inj SUB-Q Not Given QDAY@2200 [facility] Protocol Famotidine 20 mg 03/25/22 10:00 03/26/22 09:59 Famotidine 20 Mg Tab PO 20 mg BID SANTOSH Administration Haloperidol Lactate 5 mg 03/25/22 16:46 03/25/22 17:09 Haloperidol Lactate 5 Mg/1 Ml Inj IM 5 mg Q6H PRN Administration Agitation Hydralazine HCl 10 mg 03/24/22 09:00 Hydralazine 20 Mg/1 Ml Inj IV Q4H PRN Hypertension Hydromorphone HCl 0.5 mg 03/24/22 08:00 Hydromorphone 0.5 Mg/0.5 Ml Inj IV Q3H PRN Pain , Severe (7-10) Hydrophilic Ointment 1 applic 03/24/22 05:08 Lip Therapy Vaseline TP Q2HR PRN Dry Lips Insulin Human Regular 0 units 03/24/22 12:00 03/26/22 13:09 Insulin Regular, Human 100 Units/1 Ml SUB-Q Not Given Q6HR [facility] Protocol Lorazepam 2 mg 03/25/22 16:45 03/25/22 18:18 Lorazepam 2 Mg/Ml Vial IM 2 mg Q4H PRN Administration Agitation Morphine Sulfate 2 mg 03/24/22 08:00 Morphine 2 Mg/1 Ml Inj IV Q4H PRN Pain, Moderate (4-6) Multi-Ingred Cream/Lotion/Oil/Oint 1 applic 03/24/22 05:08 Mineral Oil/Petrolatum, White Ophth Oint 3.5 Gm OU Q4HR PRN Dry Eye(s) Naloxone HCl 0.1 mg 03/24/22 08:00 Naloxone 0.4 Mg/1 Ml Inj IV Q2MIN PRN Res Rate </= 8 or 02 SAT < 92% Ondansetron HCl 4 mg 03/24/22 08:00 Ondansetron 4 Mg/2 Ml Inj IV Q4H PRN Nausea And Vomiting Perphenazine 8 mg 03/24/22 22:00 03/25/22 21:49 Perphenazine 4 Mg Tab PO Not Given QHS [facility] Quetiapine Fumarate 100 mg 03/24/22 16:00 03/26/22 09:59 Quetiapine 100 Mg Tab PO 100 mg BID SANTOSH Administration Senna 17.2 mg 03/24/22 22:00 03/25/22 21:48 Sennosides 8.6 Mg Tab PO Not Given QHS SANTOSH Sertraline HCl 200 mg 03/24/22 10:00 03/26/22 09:59 Sertraline 100 Mg Tab PO 200 mg QDAY SANTOSH Administration Sodium Chloride 10 ml 03/24/22 10:00 03/26/22 10:00 Sodium Chloride 0.9% 10 Ml Flush Syringe IV 10 ml BID SANTOSH Administration Sodium Chloride 10 ml 03/24/22 08:00 Sodium Chloride 0.9% 10 Ml Flush Syringe IV PRN PRN LINE FLUSH Trazodone HCl 50 mg 03/24/22 22:00 03/25/22 21:47 Trazodone 50 Mg Tab PO Not Given QHS [facility] Nutrition/Malnutrition Assess - Dietary Evaluation Nutrition/Malnutrition Findings: Nutrition Notes Start: 03/24/22 15:11 Freq: Status: Active Protocol: Document 03/24/22 15:11 PETEY (Rec: 03/24/22 15:17 PETEY [id number]) Nutrition Notes Need for Assessment generated from: MD Order Initial or Follow up Assessment Other Pertinent Diagnosis AMS, Polysubstance dependence, Schizoaffective D/O Current Diet Regular Labs/Tests Reviewed Pertinent Medications Reviewed Height 5 ft 6 in Weight 99.79 kg [place] Body Weight (kg) 59.09 BMI 35.5 Weight Status Obese Subjective/Other Information RD consulted for TF and to evaluate nutritional intake ( pt was in ED at time of consult, but has since been transferred to medical floor and diet advanced). Observed pt who is rambling in conversation. Burn Absent Trauma Absent Minimum of two criteria No #1 Nutrition Diagnosis Predicted suboptimal energy intake Etiology AMS As Evidenced by Signs and Symptoms pt delusional at this time Is patient on ventilator? No Is Patient Ambulatory and/or Out of Bed Yes REE-(Irwin-St. Jeor-ambulatory/OOB) [ 2190.045 [id number]] Kcal/Kg value to use for calculation 17 Approximate Energy Requirements Using 1696 kcal/Kg Calculation Used for Recommendations Kcal/kg Additional Notes Pro needs 0.8-1g/kg adjBW: 64- 79g/day Fluid needs 1ml/kcal Nutrition Intervention Change Diet Order: Continue current diet order Goal #1 PO intake to meet at least 75% energy and pro needs Anticipated Discharge Needs: None identified at this time Follow-Up By: 03/28/22 Additional Comments F/U: intakes
--- NOTE | 2022-03-26 15:18 | Progress Note ---
Subjective - Reason for Consult Consult date: 03/26/22 Reason for consult: substance abuse - Chief Complaint Chief complaint: The patient was seen today. Her thoughts are more organized today. The patient says she feels better. She is still fidgety and moving about. She says "it's just a nervous movement I do." The patient denies SI/HI or hallucinations. She is asking to speak with her family. She also asked about rehab but asked if she could go home first. The staff nurse says the patient has been agitated, pulling out stuff, refusing some meds, and ran into the braxton trying to elope. REVIEW OF SYSTEMS Constitutional: Negative for weight loss ENT: Negative for stridor Respiratory: Negative for cough or hemoptysis All other systems reviewed and are negative MENTAL STATUS EXAMINATION General Appearance: Dressed appropriately Behavior: uncooperative Mood: Affect and affective range: restricted Thought Process: disorganized Thought content: delusions Speech: normal tone and pace Suicidal Ideation: reported by parents Homicidal Ideation: Denies Hallucinations: Delusions: Yes Insight and Judgment: poor insight and judgment Memory: Attention: Distracted Orientation: Confused Assessment Schizoaffective disorder Substance Induced Mood Disorder Treatment Plan [address] 250mg po BID Increased Seroquel 150mg po daily Start Klonopin 0.5mg po BID x 3 Trazodone 50mg po Qhs Agree with home zoloft Sitter: Defer to primary Medical: Per primary Disposition: Recommend acute psychiatric inpatient treatment Will follow. Thank you for this consult. Case staffed with Dr. Alejandro Mental Status Exam - Vital signs Last Vital Signs Temp 98.4 F 03/26/22 05:58 Pulse 62 03/26/22 05:58 Resp 18 03/26/22 05:58 BP 117/72 03/26/22 05:58 Pulse Ox 98 03/26/22 11:51
[2022-03-26] MEDS: clonazePAM 0.5 MG TAB PO SCH ×2 (17:11→22:29)
[2022-03-26] MEDS: SENNOSIDES 8.6 MG TAB PO SCH (22:25)
[2022-03-26] MEDS: PERPHENAZINE 4 MG TAB PO SCH (22:31)
[2022-03-26] MEDS: ENOXAPARIN 40 MG/0.4 ML INJ SUB-Q SCH (22:32)
[2022-03-26] MEDS: traZODone 50 MG TAB PO SCH (22:47)
[2022-03-26] MEDS: DIVALPROEX DR 250 MG TAB PO SCH (22:47)
[2022-03-27] MEDS: INSULIN REGULAR, HUMAN 100 UNITS/1 ML SUB-Q SCH ×4 (08:12→22:27)
[2022-03-27] MEDS: QUEtiapine 100 MG TAB PO SCH ×2 (09:00→21:28)
[2022-03-27] MEDS: clonazePAM 0.5 MG TAB PO SCH ×2 (09:00→21:26)
[2022-03-27] MEDS: DIVALPROEX DR 250 MG TAB PO SCH ×2 (09:00→22:26)
[2022-03-27] MEDS: FAMOTIDINE 20 MG TAB PO SCH ×2 (09:00→21:26)
[2022-03-27] MEDS: SERTRALINE 100 MG TAB PO SCH (09:01)
--- NOTE | 2022-03-27 09:23 | Progress Note ---
Subjective Date of service: 03/27/22 Principal diagnosis: Acute resp failure on MVS s/p extubation, Drug OD Interval history: SUMMARY PER MEDICAL RECORDS This is a 41-year-old female with active polysubstance abuse (EtOH, nicotine, methamphetamine, "ether"), congenital heart disease, acute kidney injury requiring HD in the past, IBS and schizoaffective disorder who presented to emergency department on 03/24 with suspected drug overdose and altered mental status via EMS. Per EMS patient was picked up from male friend's house who reported that she drink substance and passed out and became unresponsive. Upon EMS arrival patient respiratory rate noted at 4 with decrease expansiveness and she was given Narcan without response and Accu-Chek report of blood sugar of 10. Upon arrival to the emergency department her SPO2 was 98% on room air with pinpoint pupils, unresponsive to sternal rub and had bradycardia and the decision was made to intubate the patient for airway protection due to deep responsiveness. Patient had leukocytosis, hypermagnesemia and slightly elevated creatinine kinase on lab work. Patient was admitted to the hospitalist service with consults to CCM and acute hypoxic respiratory failure with suspected drug overdose. At the time of my exam patient was sitting up towards the end of the bed and verified her name is Chiqui Montoya by head nod. Patient was on a propofol gtt (unsure if it was infusing) and she had four-point restraints in place. Patient able to follow commands coupled with minimal vent settings the decision was made to extubate after verification with Dr. Shelton. Patient was extubated at bedside by RT Nitish. After extubation interview was conducted with patient denied fevers, chills, hematemesis, hemoptysis, recent weight loss, cough, fatig ue, fevers, chest pain or shortness of breath. Patient denies any recent sick contacts or known exposure to COVID-19. Patient seen and examined. Vitals, labs, medications, chart and imaging reviewed. Discussed with RN who was at the bedside at the time of my evaluation Disorganized thoughts, pacing up and down in the room. Mumbling to herself, with tangential speech. She is on 1013 and just recieved a dose of Haloperidol per RN. She has pulled out all her peripheral IVs Objective Vital Signs - 12hr 03/26/22 03/27/22 23:00 06:06 Pulse Rate 63 Respiratory 18 Rate Blood Pressure 90/45 O2 Sat by Pulse 99 98 Oximetry Constitutional: no acute distress, other (pacing up and down in the room) Eyes: non-icteric ENT: oropharynx moist Neck: supple, no lymphadenopathy Effort: normal Ascultation: Bilateral: clear Cardiovascular: regular rate and rhythm Gastrointestinal: normoactive bowel sounds, soft, non-tender, non-distended Integumentary: normal Extremities: no cyanosis, no edema Neurologic: non-focal exam Psychiatric: other (Disorganized thoughts, tangential speech, intermittently pacing in the room) CBC and BMP: 03/25/22 10:01 03/25/22 10:01 ABG, PT/INR, D-dimer: ABG ABG pH 7.380 pH Units (7.350-7.450) 03/24/22 06:03 ABG pCO2 41.8 mm Hg 03/24/22 06:03 ABG pO2 519.2 mm Hg (80.0-90.0) H 03/24/22 06:03 ABG O2 Saturation 99.6 % (95.0-99.0) H 03/24/22 06:03 PT/INR, D-dimer PT 12.7 Sec. (12.2-14.9) 03/24/22 05:35 INR 0.87 (0.87-1.13) 03/24/22 05:35 Abnormal lab findings: Abnormal Labs 03/24/22 03/24/22 03/24/22 05:35 05:35 05:35 WBC 11.2 H Hct 43.7 H [place] % (Auto) Seg Neutrophils % 73.6 H Seg Neutrophils # 8.3 H ABG pO2 ABG O2 Saturation Potassium BUN Creatinine 0.5 L POC Glucose Magnesium 2.50 H Total Creatine Kinase 281 H CK-MB (CK-2) Albumin 3.6 L Salicylates 2.3 L Acetaminophen 03/24/22 03/24/22 03/24/22 05:35 05:35 06:03 WBC Hct [place] % (Auto) Seg Neutrophils % Seg Neutrophils # ABG pO2 519.2 H ABG O2 Saturation 99.6 H Potassium BUN Creatinine POC Glucose Magnesium Total Creatine Kinase 290 H CK-MB (CK-2) 9.9 H Albumin Salicylates Acetaminophen 5.0 L 03/24/22 03/25/22 03/25/22 12:20 10:01 10:01 WBC Hct [place] % (Auto) 8.9 H Seg Neutrophils % Seg Neutrophils # ABG pO2 ABG O2 Saturation Potassium 3.4 L BUN 5 L Creatinine 0.5 L POC Glucose 106 H Magnesium Total Creatine Kinase CK-MB (CK-2) Albumin Salicylates Acetaminophen 03/25/22 03/26/22 03/26/22 23:46 16:39 21:26 WBC Hct [place] % (Auto) Seg Neutrophils % Seg Neutrophils # ABG pO2 ABG O2 Saturation Potassium BUN Creatinine POC Glucose 112 H 120 H 116 H Magnesium Total Creatine Kinase CK-MB (CK-2) Albumin Salicylates Acetaminophen 03/27/22 07:44 WBC Hct [place] % (Auto) Seg Neutrophils % Seg Neutrophils # ABG pO2 ABG O2 Saturation Potassium BUN Creatinine POC Glucose 106 H Magnesium Total Creatine Kinase CK-MB (CK-2) Albumin Salicylates Acetaminophen Allied health notes reviewed: nursing
--- NOTE | 2022-03-27 09:34 | Progress Note ---
Assessment and Plan Assessment and plan: This is a 41-year-old female with active polysubstance abuse (EtOH, nicotine, methamphetamine, "ether"), congenital heart disease, acute kidney injury requiring HD in the past, IBS and schizoaffective disorder who presented to emergency department on 03/24 with suspected drug overdose and altered mental status via EMS. Per EMS patient was picked up from male friend's house who reported that she drink substance and passed out and became unresponsive. Upon EMS arrival patient respiratory rate noted at 4 with decrease expansiveness and she was given Narcan without response and Accu-Chek report of blood sugar of 10. Upon arrival to the emergency department her SPO2 was 98% on room air with pinpoint pupils, unresponsive to sternal rub and had bradycardia and the decision was made to intubate the patient for airway protection due to deep responsiveness. Patient had leukocytosis, hypermagnesemia and slightly elevated creatinine kinase on lab work. Patient was admitted to the hospitalist service with consults to CCM and acute hypoxic respiratory failure with suspected drug overdose. At the time of my exam patient was sitting up towards the end of the bed and verified her name is Chiqui Montoya by head nod. Patient was on a propofol gtt (unsure if it was infusing) and she had four-point restraints in place. Patient able to follow commands coupled with minimal vent settings the decision was made to extubate after verification with Dr. Shelton. Patient was extubated at bedside by RT Nitish. After extubation interview was conducted with patient denied fevers, chills, hematemesis, hemoptysis, recent weight loss, cough, fatigue, fevers, chest pain or shortness of breath. Patient denies any recent sick contacts or known exposure to COVID-19. h/o polysubstance abuse -CT head with no acute findings -CT Cspine without acute findings -Restart home antipsychotic medication -UDS negative, plasma/serum alcohol <0.01 Substance Induced Mood Disorder -Patient denies SI but family states she has been taking questionable actions and speaks of suicidal ideation -Psych consulted, appreciate recommendations -1013 hold per psych schizoaffective disorder Acute hypoxic respiratory failure, current nicotine abuse -Presented with decreased responsiveness and respiratory rate -Intubated in the emergency department on 03/24 with 7.50 ETT at 20 at the lips and extubated 03/24 -weaned to NC -Smoking cessation counseling provided Moderate protein calorie malnutrition -PPI -NTR consulted for tube feedings -RN to perform swallow eval -if fails, replace DHT -BR: Senna Leukocytosis -Trend CBC -Likely stress-induced -Lovenox subq -Monitor for signs of bleeding -SCDs to BLE while in bed 03/25/2022. Psychiatry recommends psychiatric inpatient treatment. Continue withdrawal protocols. Continue 1013. 03/26/2022. Continue 1013 and psychiatric treatment. Withdrawal protocols 03/27/2022. Psychiatry increase Depakote to 250 mg p.o. twice daily and Seroquel 150 mg p.o. daily. Klonopin was started 0.5 mg p.o. twice daily and trazodone 50 mg p.o. nightly. Continue home Zoloft. Patient is recommended for acute psychiatric inpatient treatment. History Interval history: No new issues overnight Hospitalist Physical - Constitutional Vitals: Temp Pulse Resp BP Pulse Ox 98.3 F 63 18 90/45 98 03/26/22 21:02 03/27/22 06:06 03/27/22 06:06 03/27/22 06:06 03/27/22 06:06 General appearance: Present: no acute distress - EENT Eyes: Present: PERRL, EOM intact ENT: hearing intact, clear oral mucosa, dentition normal - Neck Neck: Present: supple, normal ROM - Respiratory Respiratory effort: normal Respiratory: bilateral: CTA - Cardiovascular Rhythm: regular Heart Sounds: Present: S1 & S2. Absent: gallop, rub - Extremities Extremities: no ischemia, No edema, Full ROM - Abdominal General gastrointestinal: soft, non-tender, non-distended, normal bowel sounds - Integumentary Integumentary: Present: clear, warm, dry - Neurologic Neurologic: CNII-XII intact, moves all extremities HEART Score - HEART Score EKG: Normal Age: < 45 Risk factors: 1-2 risk factors Troponin: Troponin T < 0.010 ng/mL (0.00-0.029) 03/24/22 05:35 Results - Labs CBC & Chem 7: 03/25/22 10:01 03/25/22 10:01 Labs: Laboratory Last Values WBC 5.3 K/mm3 (4.5-11.0) 03/25/22 10:01 RBC 4.26 M/mm3 (3.65-5.03) 03/25/22 10:01 Hgb 12.6 gm/dl (10.1-14.3) 03/25/22 10:01 Hct 38.0 % (30.3-42.9) 03/25/22 10:01 MCV 89 fl (79-97) 03/25/22 10:01 MCH 30 pg (28-32) 03/25/22 10:01 MCHC 33 % (30-34) 03/25/22 10:01 RDW 14.8 % (13.2-15.2) 03/25/22 10:01 Plt Count 197 K/mm3 (140-440) 03/25/22 10:01 Lymph % (Auto) 25.0 % (13.4-35.0) 03/25/22 10:01 [place] % (Auto) 8.9 % (0.0-7.3) H 03/25/22 10:01 Eos % (Auto) 1.1 % (0.0-4.3) 03/25/22 10:01 Baso % (Auto) 1.1 % (0.0-1.8) 03/25/22 10:01 Lymph # (Auto) 1.3 K/mm3 (1.2-5.4) 03/25/22 10:01 [place] # (Auto) 0.5 K/mm3 (0.0-0.8) 03/25/22 10:01 Eos # (Auto) 0.1 K/mm3 (0.0-0.4) 03/25/22 10:01 Baso # (Auto) 0.1 K/mm3 (0.0-0.1) 03/25/22 10:01 Seg Neutrophils % 63.9 % (40.0-70.0) 03/25/22 10:01 Seg Neutrophils # 3.4 K/mm3 (1.8-7.7) 03/25/22 10:01 PT 12.7 Sec. (12.2-14.9) 03/24/22 05:35 INR 0.87 (0.87-1.13) 03/24/22 05:35 APTT 28.4 Sec. (24.2-36.6) 03/24/22 05:35 ABG pH 7.380 pH Units (7.350-7.450) 03/24/22 06:03 ABG pCO2 41.8 mm Hg 03/24/22 06:03 ABG pO2 519.2 mm Hg (80.0-90.0) H 03/24/22 06:03 ABG HCO3 24.1 mmol/L (20.0-26.0) 03/24/22 06:03 ABG O2 Saturation 99.6 % (95.0-99.0) H 03/24/22 06:03 ABG O2 Content 18.8 (0.0-44) 03/24/22 06:03 ABG Base Excess -1.0 mmol/L (-2.0-3.0) 03/24/22 06:03 ABG Hemoglobin 12.8 gm/dl (12.0-16.0) 03/24/22 06:03 ABG Carboxyhemoglobin 2.6 % (0.0-5.0) 03/24/22 06:03 ABG Methemoglobin 0.5 % (0.0-1.5) 03/24/22 06:03 Oxyhemoglobin 96.5 % (95.0-99.0) 03/24/22 06:03 FiO2 100 % 03/24/22 06:03 Sodium 140 mmol/L (137-145) 03/25/22 10:01 Potassium 3.4 mmol/L (3.6-5.0) L 03/25/22 10:01 Chloride 102.8 mmol/L (98-107) 03/25/22 10:01 Carbon Dioxide 28 mmol/L (22-30) 03/25/22 10:01 Anion Gap 13 mmol/L 03/25/22 10:01 BUN 5 mg/dL (7-17) L 03/25/22 10:01 Creatinine 0.5 mg/dL (0.6-1.2) L 03/25/22 10:01 Estimated GFR > 60 ml/min 03/25/22 10:01 BUN/Creatinine Ratio 10 % 03/25/22 10:01 Glucose 96 mg/dL (65-100) 03/25/22 10:01 POC Glucose 106 mg/dL (70-105) H 03/27/22 07:44 Lactic Acid 1.90 mmol/L (0.7-2.0) 03/24/22 05:35 Calcium 8.9 mg/dL (8.4-10.2) 03/25/22 10:01 Magnesium 2.50 mg/dL (1.7-2.3) H 03/24/22 05:35 Total Bilirubin 0.20 mg/dL (0.1-1.2) 03/24/22 05:35 AST 23 units/L (5-40) 03/24/22 05:35 ALT 33 units/L (7-56) 03/24/22 05:35 Alkaline Phosphatase 115 units/L (35-129) 03/24/22 05:35 Ammonia 54.0 umol/L (25-60) 03/24/22 05:35 Total Creatine Kinase 281 units/L (30-135) H 03/24/22 05:35 Total Creatine Kinase 290 units/L (30-135) H 03/24/22 05:35 CK-MB (CK-2) 9.9 ng/mL (0.0-4.0) H 03/24/22 05:35 CK-MB (CK-2) Rel Index 3.4 (0-4) 03/24/22 05:35 Troponin T < 0.010 ng/mL (0.00-0.029) 03/24/22 05:35 Total Protein 7.2 g/dL (6.3-8.2) 03/24/22 05:35 Albumin 3.6 g/dL (3.9-5) L 03/24/22 05:35 Albumin/Globulin Ratio 1.0 % 03/24/22 05:35 TSH 0.476 mlU/mL (0.270-4.200) 03/24/22 05:35 Free T4 1.17 ng/dL (0.76-1.46) 03/24/22 05:35 HCG, Qual Negative (Negative) 03/24/22 05:35 Salicylates 2.3 mg/dL (2.8-20.0) L 03/24/22 05:35 Urine Opiates Screen Negative 03/24/22 05:22 Urine Methadone Screen Negative 03/24/22 05:22 Acetaminophen 5.0 ug/mL (10.0-30.0) L 03/24/22 05:35 Ur Barbiturates Screen Negative 03/24/22 05:22 Ur Phencyclidine Scrn Negative 03/24/22 05:22 Ur Amphetamines Screen Negative 03/24/22 05:22 U Benzodiazepines Scrn Negative 03/24/22 05:22 Urine Cocaine Screen Negative 03/24/22 05:22 U Marijuana (THC) Screen Negative 03/24/22 05:22 Drugs of Abuse Note Disclamer 03/24/22 05:22 Plasma/Serum Alcohol < 0.01 % (0-0.07) 03/24/22 05:35 Han/IV: Voiding Method Toilet Active Medications - Current Medications Current Medications: Generic Name Dose Route Start Last Admin Trade Name Freq PRN Reason Stop Dose Admin Acetaminophen 650 mg 03/24/22 08:00 Acetaminophen 325 Mg/10.15 Ml Oral Liqd Unit Dose FEEDTUBE Q6H PRN Pain MILD(1-3)/Fever >100.5/LAWSON Clonazepam 0.25 mg 03/26/22 16:00 03/27/22 09:00 Clonazepam 0.5 Mg Tab PO 03/30/22 06:00 0.25 mg BID SANTOSH Administration Dextrose 50 ml 03/24/22 08:00 Dextrose 50% In Water (25gm) 50 Ml Syringe IV Q30MIN PRN Hypoglycemia Protocol Divalproex Sodium 250 mg 03/26/22 22:00 03/27/22 09:[address] 250 Mg Tab PO 250 mg BID SANTOSH Administration Enoxaparin Sodium 40 mg 03/24/22 22:00 03/26/22 22:32 Enoxaparin 40 Mg/0.4 Ml Inj SUB-Q 40 mg QDAY@2200 SANTOSH Administration Protocol Famotidine 20 mg 03/25/22 10:00 03/27/22 09:00 Famotidine 20 Mg Tab PO 20 mg BID SANTOSH Administration Haloperidol Lactate 5 mg 03/25/22 16:46 03/25/22 17:09 Haloperidol Lactate 5 Mg/1 Ml Inj IM 5 mg Q6H PRN Administration Agitation Hydralazine HCl 10 mg 03/24/22 09:00 Hydralazine 20 Mg/1 Ml Inj IV Q4H PRN Hypertension Hydromorphone HCl 0.5 mg 03/24/22 08:00 03/26/22 23:23 Hydromorphone 0.5 Mg/0.5 Ml Inj IV 0.5 mg Q3H PRN Administration Pain , Severe (7-10) Hydrophilic Ointment 1 applic 03/24/22 05:08 Lip Therapy Vaseline TP Q2HR PRN Dry Lips Insulin Human Regular 0 units 03/26/22 22:00 03/27/22 08:12 Insulin Regular, Human 100 Units/1 Ml SUB-Q Not Given ACHS [facility] Protocol Lorazepam 2 mg 03/25/22 16:45 03/25/22 18:18 Lorazepam 2 Mg/Ml Vial IM 2 mg Q4H PRN Administration Agitation Morphine Sulfate 2 mg 03/24/22 08:00 03/27/22 08:54 Morphine 2 Mg/1 Ml Inj IV 2 mg Q4H PRN Administration Pain, Moderate (4-6) Multi-Ingred Cream/Lotion/Oil/Oint 1 applic 03/24/22 05:08 Mineral Oil/Petrolatum, White Ophth Oint 3.5 Gm OU Q4HR PRN Dry Eye(s) Naloxone HCl 0.1 mg 03/24/22 08:00 Naloxone 0.4 Mg/1 Ml Inj IV Q2MIN PRN Res Rate </= 8 or 02 SAT < 92% Ondansetron HCl 4 mg 03/24/22 08:00 Ondansetron 4 Mg/2 Ml Inj IV Q4H PRN Nausea And Vomiting Perphenazine 8 mg 03/24/22 22:00 03/26/22 22:31 Perphenazine 4 Mg Tab PO 8 mg QHS SANTOSH Administration Quetiapine Fumarate 150 mg 03/26/22 15:20 03/27/22 09:00 Quetiapine 100 Mg Tab PO 150 mg BID SANTOSH Administration Senna 17.2 mg 03/24/22 22:00 03/26/22 22:25 Sennosides 8.6 Mg Tab PO 17.2 mg QHS SANTOSH Administration Sertraline HCl 200 mg 03/24/22 10:00 03/27/22 09:01 Sertraline 100 Mg Tab PO 200 mg QDAY SANTOSH Administration Sodium Chloride 10 ml 03/24/22 10:00 03/26/22 23:00 Sodium Chloride 0.9% 10 Ml Flush Syringe IV 10 ml BID SANTOSH Administration Sodium Chloride 10 ml 03/24/22 08:00 Sodium Chloride 0.9% 10 Ml Flush Syringe IV PRN PRN LINE FLUSH Trazodone HCl 50 mg 03/24/22 22:00 03/26/22 22:47 Trazodone 50 Mg Tab PO 50 mg QHS SANTOSH Administration Nutrition/Malnutrition Assess - Dietary Evaluation Nutrition/Malnutrition Findings: Nutrition Notes Start: 03/24/22 1 5:11 Freq: Status: Active Protocol: Document 03/24/22 15:11 PETEY (Rec: 03/24/22 15:17 PETEY [id number]) Nutrition Notes Need for Assessment generated from: MD Order Initial or Follow up Assessment Other Pertinent Diagnosis AMS, Polysubstance dependence, Schizoaffective D/O Current Diet Regular Labs/Tests Reviewed Pertinent Medications Reviewed Height 5 ft 6 in Weight 99.79 kg [place] Body Weight (kg) 59.09 BMI 35.5 Weight Status Obese Subjective/Other Information RD consulted for TF and to evaluate nutritional intake ( pt was in ED at time of consult, but has since been transferred to medical floor and diet advanced). Observed pt who is rambling in conversation. Burn Absent Trauma Absent Minimum of two criteria No #1 Nutrition Diagnosis Predicted suboptimal energy intake Etiology AMS As Evidenced by Signs and Symptoms pt delusional at this time Is patient on ventilator? No Is Patient Ambulatory and/or Out of Bed Yes REE-([place]-St. Jeor-ambulatory/OOB) [ 2190.045 NUTR.[id number]] Kcal/Kg value to use for calculation 17 Approximate Energy Requirements Using 1696 kcal/Kg Calculation Used for Recommendations Kcal/kg Additional Notes Pro needs 0.8-1g/kg adjBW: 64- 79g/day Fluid needs 1ml/kcal Nutrition Intervention Change Diet Order: Continue current diet order Goal #1 PO intake to meet at least 75% energy and pro needs Anticipated Discharge Needs: None identified at this time Follow-Up By: 03/28/22 Additional Comments F/U: intakes
--- NOTE | 2022-03-27 11:54 | Progress Note ---
Subjective - Reason for Consult Consult date: 03/27/22 Reason for consult: substance abuse - Chief Complaint Chief complaint: The patient was seen today. She is calm and cooperative. Her thoughts are organized. She says "I feel pretty good. I'm blessed." She says she has been sleeping well. She continues to deny SI/HI. She says her family wants her to do rehab. The patient is asking about going home. Shes says she's supposed to speak with her family today. The patient denies hallucinations of any kind. The patient no longer meets criteria for inpatient psychiatric treatment; as her thoughts are organized, she denies any harmful thoughts or behaviors. Will have the cloth mender give the patient resources for drug rehab. Will continue to follow the patient during her hospital stay for med management. REVIEW OF SYSTEMS Constitutional: Negative for weight loss ENT: Negative for stridor Respiratory: Negative for cough or hemoptysis All other systems reviewed and are negative MENTAL STATUS EXAMINATION General Appearance: Dressed appropriately Behavior: uncooperative Mood: pretty good, blessed Affect and affective range: congruent with stated mood Thought Process: goal directed Thought content: None Speech: normal tone and pace Suicidal Ideation: Denies Homicidal Ideation: Denies Hallucinations: Denies Delusions: None elicited Insight and Judgment: Limited insight and judgment Memory: Limited Attention: Distracted Orientation: a/c Assessment Schizoaffective disorder Substance Induced Mood Disorder Treatment Plan d/c [address] 250mg po BID Seroquel 150mg po daily Trazodone 50mg po Qhs Continue home meds as previously prescribed. Sitter: Defer to primary Medical: Per primary Disposition: Do not recommend acute psychiatric inpatient treatment. The patient no longer meets criteria. She understands that if SI/HI arise she is to seek immediate assistance The cloth mender to give all necessary resources including drug rehab, CBT, med management The cloth mender to further discuss safety plan The patient to abstain from all illicit drug use. Will follow for med management. Thank you for this consult. Case staffed with Dr. Alejandro Mental Status Exam - Vital signs Last Vital Signs Temp 98.3 F 03/26/22 21:02 Pulse 63 03/27/22 06:06 Resp 18 03/27/22 06:06 BP 90/45 03/27/22 06:06 Pulse Ox 98 03/27/22 06:06
[2022-03-27] MEDS ORDERED: oxyCODONE /ACETAMINOPHEN 5-325MG TAB PO PRN (16:28)
[2022-03-27] MEDS ORDERED: LORazepam 0.5 MG TAB PO PRN ×2 (18:20→18:21)
[2022-03-27] MEDS: SENNOSIDES 8.6 MG TAB PO SCH (21:26)
[2022-03-27] MEDS: traZODone 50 MG TAB PO SCH (21:28)
[2022-03-27] MEDS: ENOXAPARIN 40 MG/0.4 ML INJ SUB-Q SCH (21:30)
[2022-03-27] MEDS: PERPHENAZINE 4 MG TAB PO SCH (22:25)
--- NOTE | 2022-03-28 08:56 | Progress Note ---
Assessment and Plan This is a 41-year-old female with active polysubstance abuse (EtOH, nicotine, methamphetamine, "ether"), congenital heart disease, acute kidney injury requiring HD in the past, IBS and schizoaffective disorder who presented to emergency department on 03/24 with suspected drug overdose and altered mental status via EMS. Per EMS patient was picked up from male friend's house who reported that she drink substance and passed out and became unresponsive. Upon EMS arrival patient respiratory rate noted at 4 with decrease expansiveness and she was given Narcan without response and Accu-Chek report of blood sugar of 10. Upon arrival to the emergency department her SPO2 was 98% on room air with pinpoint pupils, unresponsive to sternal rub and had bradycardia and the decision was made to intubate the patient for airway protection due to deep responsiveness. Patient had leukocytosis, hypermagnesemia and slightly elevated creatinine kinase on lab work. Patient was admitted to the hospitalist service with consults to [facility] and acute hypoxic respiratory failure with suspected drug overdose. Patient was on a propofol gtt, and she had four-point restraints in place. Patient able to follow commands coupled with minimal vent settings the decision was made to extubate . Patient was extubated. Patient denied fevers, chills, hematemesis, hemoptysis, recent weight loss, cough, fatigue, fevers, chest pain or shortness of breath. Patient denies any recent sick contacts or known exposure to COVID-19. Patient has history of smoking, alcohol and drug abuse. History of smoking 1 pack x 10 years. 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 Patient awake. Resting on room air. O2 saturation 100%. No complaint of chest pain, shortness of breath or cough. Patient afebrile. No leukocytosis. Blood pressure 96/34,(MAP 64) pulse 66 , respirations 18. Chest xray 03/24/22 reported No significant acute pulmonary or pleural abn ormality. No pneumothorax. Patient is on S/C Lovenox and Famotidine. - Patient Problems (1) Drug overdose Status: Acute Plan to address problem: Management as per primary care and psychiatry. (2) Endotracheally intubated Status: Acute Plan to address problem: Patient intubated and extubated. Patient presently on room air. O2 saturation 100%. (3) Obtundation Status: Acute Plan to address problem: improved. Patient awake Subjective Date of service: 03/28/22 Principal diagnosis: Acute resp failure on MVS s/p extubation, Drug OD Interval history: This is a 41-year-old female with active polysubstance abuse (EtOH, nicotine, methamphetamine, "ether"), congenital heart disease, acute kidney injury requiring HD in the past, IBS and schizoaffective disorder who presented to emergency department on 03/24 with suspected drug overdose and altered mental status via EMS. Per EMS patient was picked up from male friend's house who reported that she drink substance and passed out and became unresponsive. Upon EMS arrival patient respiratory rate noted at 4 with decrease expansiveness and she was given Narcan without response and Accu-Chek report of blood sugar of 10. Upon arrival to the emergency department her SPO2 was 98% on room air with pinpoint pupils, unresponsive to sternal rub and had bradycardia and the decision was made to intubate the patient for airway protection due to deep responsiveness. Patient had leukocytosis, hypermagnesemia and slightly elevated creatinine kinase on lab work. Patient was admitted to the hospitalist service with consults to [facility] and acute hypoxic respiratory failure with suspected drug overdose. Patient was on a propofol gtt, and she had four-point restraints in place. Patient able to follow commands coupled with minimal vent settings the decision was made to extubate . Patient was extubated. Patient denied fevers, chills, hematemesis, hemoptysis, recent weight loss, cough, fatigue, fevers, chest pain or shortness of breath. Patient denies any recent sick contacts or known exposure to COVID-19. Patient has history of smoking, alcohol and drug abuse. History of smoking 1 pack x 10 years. 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 Patient awake. Resting on room air. O2 saturation 100%. No complaint of chest pain, shortness of breath or cough. Patient afebrile. No leukocytosis. Blood pressure 96/34,(MAP 64) pulse 66 , respirations 18. Chest xray 03/24/22 reported No significant acute pulmonary or pleural abnormality. No pneumothorax. Patient is on S/C Lovenox and Famotidine. Objective Vital Signs - 12hr 03/27/22 03/27/22 03/28/22 23:00 23:54 05:26 Temperature 97.9 F 97.5 F L Pulse Rate 65 66 Respiratory 18 19 Rate Blood Pressure 89/49 96/34 O2 Sat by Pulse 98 97 100 Oximetry Constitutional: no acute distress, alert Eyes: non-icteric ENT: oropharynx moist Neck: supple, no lymphadenopathy Effort: normal Ascultation: Bilateral: clear Cardiovascular: regular rate and rhythm Gastrointestinal: normoactive bowel sounds, soft, non-tender, non-distended Integumentary: normal Extremities: no cyanosis, no edema Neurologic: non-focal exam, pupils equal and round, CN II-XII normal Psychiatric: depressed CBC and BMP: 03/25/22 10:01 03/25/22 10:01 ABG, PT/INR, D-dimer: ABG ABG pH 7.380 pH Units (7.350-7.450) 03/24/22 06:03 ABG pCO2 41.8 mm Hg 03/24/22 06:03 ABG pO2 519.2 mm Hg (80.0-90.0) H 03/24/22 06:03 ABG O2 Saturation 99.6 % (95.0-99.0) H 03/24/22 06:03 PT/INR, D-dimer PT 12.7 Sec. (12.2-14.9) 03/24/22 05:35 INR 0.87 (0.87-1.13) 03/24/22 05:35 Abnormal lab findings: Abnormal Labs 03/24/22 03/24/22 03/24/22 05:35 05:35 05:35 WBC 11.2 H Hct 43.7 H [place] % (Auto) Seg Neutrophils % 73.6 H Seg Neutrophils # 8.3 H ABG pO2 ABG O2 Saturation Potassium BUN Creatinine 0.5 L POC Glucose Magnesium 2.50 H Total Creatine Kinase 281 H CK-MB (CK-2) Albumin 3.6 L Salicylates 2.3 L Acetaminophen 03/24/22 03/24/22 03/24/22 05:35 05:35 06:03 WBC Hct [place] % (Auto) Seg Neutrophils % Seg Neutrophils # ABG pO2 519.2 H ABG O2 Saturation 99.6 H Potassium BUN Creatinine POC Glucose Magnesium Total Creatine Kinase 290 H CK-MB (CK-2) 9.9 H Albumin Salicylates Acetaminophen 5.0 L 03/24/22 03/25/22 03/25/22 12:20 10:01 10:01 WBC Hct [place] % (Auto) 8.9 H Seg Neutrophils % Seg Neutrophils # ABG pO2 ABG O2 Saturation Potassium 3.4 L BUN 5 L Creatinine 0.5 L POC Glucose 106 H Magnesium Total Creatine Kinase CK-MB (CK-2) Albumin Salicylates Acetaminophen 03/25/22 03/26/22 03/26/22 23:46 16:39 21:26 WBC Hct [place] % (Auto) Seg Neutrophils % Seg Neutrophils # ABG pO2 ABG O2 Saturation Potassium BUN Creatinine POC Glucose 112 H 120 H 116 H Magnesium Total Creatine Kinase CK-MB (CK-2) Albumin Salicylates Acetaminophen 03/27/22 03/27/22 07:44 16:57 WBC Hct [place] % (Auto) Seg Neutrophils % Seg Neutrophils # ABG pO2 ABG O2 Saturation Potassium BUN Creatinine POC Glucose 106 H 135 H Magnesium Total Creatine Kinase CK-MB (CK-2) Albumin Salicylates Acetaminophen Chest x-ray: report reviewed, image reviewed Additional Studies: CHEST 1 VIEW 03/24/22 INDICATION / CLINICAL INFORMATION: ETT placement STUDY TIME: 514 COMPARISON: 01/12/2022 FINDINGS: SUPPORT DEVICES: Endotracheal tube is seen with tip just above the sternal notc h approximately 5.1 cm above the francesco. A nasogastric tube extends well below the diaphragm. HEART / MEDIASTINUM: Stable LUNGS / PLEURA: No significant acute pulmonary or pleural abnormality. No pneumothorax. ADDITIONAL FINDINGS: No significant additional findings. Allied health notes reviewed: nursing
[2022-03-28] MEDS: INSULIN REGULAR, HUMAN 100 UNITS/1 ML SUB-Q SCH ×3 (09:00→17:02)
--- NOTE | 2022-03-28 09:38 | Discharge Summary ---
Providers - Providers Date of Admission: 03/24/22 07:33 Date of discharge: 03/28/22 Attending physician: KARLENE VO 03/24/22 07:18 Consult to Physician [CONS] Urgent Comment: Consulting Provider: GROVER SOTO Physician Instructions: Reason For Exam: Intubated patient/ICU admit 03/24/22 07:33 Consult to Dietitian/Nutrition [CONS] Routine Physician Instructions: Reason For Exam: Reason for Consult: Write/Manage Tube Feeding 03/24/22 09:45 Consult to Physician [CONS] Routine Comment: Consulting Provider: HAN COLLAZO Physician Instructions: Reason For Exam: SI 03/24/22 10:06 Consult to Mental Health [CONS] Stat Reason For Exam: OVERDOSE, Primary care physician: EFRAIN CARPENTER Hospitalization Reason for admission: Suspected drug overdose Condition: Fair Hospital course: This is a 41-year-old female with active polysubstance abuse (EtOH, nicotine, methamphetamine, "ether"), congenital heart disease, acute kidney injury requiring HD in the past, IBS and schizoaffective disorder who presented to emergency department on 03/24 with suspected drug overdose and altered mental status via EMS. Per EMS patient was picked up from male friend's house who reported that she drank a substance and passed out and became unresponsive. Upon EMS arrival patient respiratory rate noted at 4 with decrease expansiveness and she was given Narcan without response and Accu-Chek report of blood sugar of 10. Upon arrival to the emergency department her SPO2 was 98% on room air with pinpoint pupils, unresponsive to sternal rub and had bradycardia and the decision was made to intubate the patient for airway protection due to deep responsiveness. Patient had leukocytosis, hypermagnesemia and slightly elevated creatinine kinase on lab work. Patient was admitted to the hospitalist service with consults to [facility] and acute hypoxic respiratory failure with suspected drug overdose. Patient was placed on a propofol gtt and she had four-point restraints in place. Patient was initially placed on minimal vent settings the decision was made to extubate after verification with Dr. Shelton. Patient was extubated at bedside by RT Nitish. the patient was admitted with diagnosis below along with work-up for disease process h/o polysubstance abuse -CT head with no acute findings -CT Cspine without acute findings -home antipsychotic medication -UDS negative, plasma/serum alcohol <0.01 Substance Induced Mood Disorder -Patient denied SI but family stated she has been taking questionable actions and speaks of suicidal ideation -Psych consulted, appreciate recommendations -1013 initially placed by psychiatry but was later discontinued on 03/27/2022 schizoaffective disorder Acute hypoxic respiratory failure, current nicotine abuse -Presented with decreased responsiveness and respiratory rate -Intubated in the emergency department on 03/24 with 7.50 ETT at 20 at the lips and extubated 03/24 -weaned to NC -Smoking cessation counseling provided Moderate protein calorie malnutrition Leukocytosis -Likely stress-induced Hospital course: 03/25/2022. Psychiatry recommends psychiatric inpatient treatment. Continue withdrawal protocols. Continue 1013. 03/26/2022. Continue 1013 and psychiatric treatment. Withdrawal protocols 03/27/2022. Psychiatry increase Depakote to 250 mg p.o. twice daily and Seroquel 150 mg p.o. daily. Klonopin was started 0.5 mg p.o. twice daily and trazodone 50 mg p.o. nightly. Continue home Zoloft. Patient is recommended for acute psychiatric inpatient treatment. 03/28/2022. Psychiatry discontinue 1013 and recommends Depakote to 50 mg p.o. twice daily, Seroquel 150 mg p.o. daily, trazodone 50 mg p.o. nightly and to continue home meds as previously prescribed. Psychiatry no longer recommended acute psychiatric inpatient treatment. The patient no longer meets criteria. She understands that if SI/HI arise she is to seek immediate assistance. The finish remover to give all necessary resources including drug rehab, CBT, med management The finish remover to further discuss safety plan The patient to abstain from all illicit drug use. Dedicated discharge time 38 minutes. Disposition: HOME / SELF CARE / HOMELESS Final Discharge Diagnosis (Prints w/discharge instructions): Schizoaffective disorder, substance induced mood disorder, acute hypoxic respiratory failure, moderate protein calorie malnutrition Core Measure Documentation - Palliative Care Palliative Care/ Comfort Measures: Not Applicable - Core Measures Any of the following diagnoses?: none Exam - Constitutional Vitals: Temp Pulse Resp BP Pulse Ox 97.5 F L 66 19 96/34 100 03/28/22 05:03/28/22 05:03/28/22 05:03/28/22 05:26 03/28/22 05:26 General appearance: Present: no acute distress, well-nourished - EENT Eyes: Present: PERRL ENT: hearing intact, clear oral mucosa - Neck Neck: Present: supple, normal ROM - Respiratory Respiratory effort: normal Respiratory: bilateral: CTA - Cardiovascular Heart Sounds: Present: S1 & S2. Absent: rub, click - Extremities Extremities: pulses symmetrical, No edema Peripheral Pulses: within normal limits - Abdominal General gastrointestinal: Present: soft, non-tender, non-distended, normal bowel sounds Female genitourinary: Present: normal - Integumentary Integumentary: Present: clear, warm, dry - Musculoskeletal Musculoskeletal: gait normal, strength equal bilaterally - Psychiatric Psychiatric: appropriate mood/affect, intact judgment & insight - Neurologic Neurologic: CNII-XII intact, moves all extremities Plan Activity: advance as tolerated Weight Bearing Status: Weight Bear as Tolerated Diet: regular Care Plan Goals: Professional and Agency Contacts To help [facility] Crises(25/05) [place] Crisis Line: Suicide Prevention Line: Crisis Text Line: Text START to [phone] Emergency: 911 Outpatient COMMUNITY Behavioral Health Resources: [place]: [facility] [address] [place], [place] [address] [address] [facility] - [address] [place] [address] Thursday thru Thursday - 8am - 5pm [facility] Address: [address] [place] [address] [facility] Address: [address] [place] [address] Thursday thru Thursday- 7am-2pm [facility] Address: [address] [place] [address] Thursday thru Thursday: 8:30AM-5PM Follow up with: EFRAIN CARPENTER MD [Primary Care Provider] - 7 Days Prescriptions: Divalproex Dr [Genet CROCKER] 250 mg PO DAILY #[address] [Genet Crocker] 250 mg PO BID #60 tablet traZODone [Desyrel] 50 mg PO QHS #30 tab traZODone [Desyrel] 50 mg PO QHS #30 tablet QUEtiapine [SEROquel] 150 mg PO QDAY #45 tab QUEtiapine [SEROquel] 150 mg PO QDAY #30 tablet Sertraline [Zoloft] 200 mg PO QDAY #30 tab-cap
[2022-03-28] MEDS: SERTRALINE 100 MG TAB PO SCH (10:23)
[2022-03-28] MEDS: QUEtiapine 100 MG TAB PO SCH (10:23)
[2022-03-28] MEDS: FAMOTIDINE 20 MG TAB PO SCH (10:24)
[2022-03-28] MEDS: clonazePAM 0.5 MG TAB PO SCH (10:25)
[2022-03-28] MEDS: DIVALPROEX DR 250 MG TAB PO SCH (11:08)
[2022-03-28 17:15] VITALS: BP 105/45
== END 2022-03-28 17:24 | disposition home or self-care (01) | DRG 917 ==
LOC: ED 04:51 → 3A 07:33
PROVIDERS: ADMIT Internal Medicine; ATTEND Hospitalist
PROC: 4A033R1 Measurement of Arterial Saturation, Peripheral, Percutaneous Approach (ICD-10-PCS; principal; 2022-03-24)
PROC: 5A1935Z Respiratory Ventilation, Less than 24 Consecutive Hours (ICD-10-PCS; 2022-03-24)
PROC: 0BH17EZ Insertion of Endotracheal Airway into Trachea, Via Natural or Artificial Opening (ICD-10-PCS; 2022-03-24)
DX: T50.901A Poisoning by unspecified drugs, medicaments and biological substances, accidental (unintentional), initial encounter (principal); J96.01 Acute respiratory failure with hypoxia; F25.9 Schizoaffective disorder, unspecified; E44.0 Moderate protein-calorie malnutrition; Z83.3 Family history of diabetes mellitus; Y92.89 Other specified places as the place of occurrence of the external cause
CPT/HCPCS: 36415; 70450; 71045; 72125; 80048; 80053; 80307; 80320; 82140; 82550; 82553; 82803; 82962; 83735; 84439; 84443; 84484; 84703; 85025; 85610; 85730; 93005; 94002; G0378; J3490; G0480; J0330; J1630; J1650; J2060; J2270; J2704; J7030